=== PATIENT | female | born 1950 | race Caucasian/White ===

== ENCOUNTER 2020-08-11 22:18 | Emergency (ER) | payer MEDICARE, SELFPAY ==
--- NOTE | ~2020-08-11 | XR_ITS ---
EXAMINATION: XR chest 1V portable DATE: 08/11/2020 23:24 INDICATION: Shortness of breath TECHNIQUE: frontal view of the chest was obtained. COMPARISON: None FINDINGS: Postoperative changes at both the left and right hemithoraces with multiple surgical clips at the hil a and with suture lines in the bilateral upper lung zones. Blunting loss in the upper lung zones with cephalad retraction of both elke. There is also elevation of the right hemidiaphragm. No focal airsp rachel opacities, pulmonary edema, pleural effusion or pneumothorax. Heart size is normal. IMPRESSION: 1. No acute cardiopulmonary disease. Reviewed, dictated and finalized at location A. IC RELATIONS SUPERVISOR
[2020-08-11 22:25] VITALS: BP 166/93; PULSE 87; RESP 26; TEMP 36.7; O2SAT 90
--- NOTE | 2020-08-11 22:29 | PC.NURSE ---
pt placed on 2l of o2 nc with no improvement. pt then placed on 4l with o2 sat rising to 100%
--- NOTE | 2020-08-11 22:33 | ECG_ITS ---
Measurements Intervals [place] Rate: 85 P: 76 OR: 157 QRS: 88 QRSD: 76 T: 7 QT: 365 QTc: 435 Interpretive Statements SINUS RHYTHM POSSIBLE LEFT ATRIAL ENLARGEMENT BORDERLINE ST-T WAVE ABNORMALITY- INFERIOR LEADS BASELINE ARTIFACT- I, II, III, AVR, AVL, AVF, V1-V6 BORDERLINE ECG Electronically Signed On 08-12-2020 7:02:36 SENIOR QUALITY METHODS SPECIALIST by John Wynn D.O.
--- NOTE | 2020-08-11 22:40 | ED.SOB ---
HPI - SOB/Dyspnea General Chief Complaint: Shortness of Breath/Dyspnea Stated Complaint: SOB Time Seen by Provider: 08/11/20 22:38 History of Present Illness HPI Narrative: 70 yo female w/ h/o lung cancer s/p double lobectomy presents to the ED for SOB. She has had some SOB since yesterday, acutely worse this evening. Noted to be in distress and mildly hypoxic during triage. She does endorse having to work harder to breath. No CP, fever, chills, cough. History mildly limited by medical condition Related Data Allergies Allergy/AdvReac Type Severity Reaction Status Date / Time iohexol Allergy Hives Verified 08/11/20 22:30 [From contrast - CT, X-RAY] Review of Systems Review of Systems: All systems reviewed & are unremarkable except as noted in HPI and below Constitutional: Constitutional: Denies chills, Denies fever(s) and Denies weakness ENT: Denies sore throat Cardiovascular: Cardiovascular: Denies chest pain Respiratory: Respiratory: Denies cough and Reports dyspnea Gastrointestinal: Gastrointestinal: Denies abdominal pain and Denies nausea Musculoskeletal: Musculoskeletal: Denies back pain Neurologic: Denies confusion and Denies weakness [facility] Past Medical History Medical History (Updated 08/13/20 @ 00:55 by Estuardo Quintanilla MD) Lung cancer Surgical History Surgical History (Updated 08/13/20 @ 00:55 by Estuardo Quintanilla MD) History of lobectomy of lung Social History Social History (Updated 08/13/20 @ 00:55 by Estuardo Quintanilla MD) Smoking status: Former smoker Exam Const: Other: Mild distress. Speaking in 1-2 word sentences HENMT: Head: normal to inspection Neck: Neck: normal visual inspection Resp: Effort & Inspection: labored Auscultation: diminished lung sounds Cardio: Rate: regular rate Rhythm: regular rhythm GI: GI Palp: Yes Soft to palpation and No Tenderness to palpation present (GI) Skin: General skin exam: normal color Neuro: General: patient oriented x3, moves all extremities, no focal motor deficits and CN's II-XI intact bilaterally Gait exam (Neuro): Normal gait present Extrem: General: normal to inspection and no edema Course Vital Signs Vital signs: Vital Signs Temperature 36.7 C 08/11/20 22:25 Pulse Rate 87 01/13/21 22:25 Respiratory Rate 26 H 08/11/20 22:25 Blood Pressure 166/93 H 08/11/20 22:25 Pulse Oximetry 90 08/11/20 22:25 Temperature 36.6 C 08/12/20 00:00 Pulse Rate 72 08/12/20 00:48 Respiratory Rate 16 08/12/20 00:48 Blood Pressure 113/67 08/12/20 00:48 Pulse Oximetry 97 08/12/20 00:48 MDM - SOB/Dyspnea MDM Narrative Medical decision making narrative: She responded very well to nebulizer treatment. Feeling close to baseline. She likely has undiagnosed COPD or other reactive lung disease. I offered admission due to the severity of her symptoms on presentation. She said that she would prefer to go home and would have no problem getting back if symptoms worsen Differential Diagnosis Differential diagnosis: Likely acute exacerbation of chronic obstructive airways disease, community acquired pneumonia, pulmonary embolism and other (COVID-19) Lab Data Result diagrams: 08/11/20 22:52 08/11/20 22:52 Labs: Lab Results 08/11/20 08/11/20 08/11/20 Range/Units 22:52 22:52 22:52 WBC 10.8 H (4.5-10.0) K/mm3 RBC 4.10 L (4.2-5.4) M/mm3 Hgb 13.4 (12.0-15.0) g/dL Hct 37.9 (37.0-47.0) % MCV 92.4 (80-100) fl MCH 32.7 (26-34) pg MCHC 35.4 (32-36) g/dl RDW 12.5 (11.5-14.5) % Plt Count 350 (150-375) k/mm3 MPV 8.5 (7.4-10.4) fl Immature Gran % (Auto) 0.3 (0-0.5) % Neut % (Auto) 62.3 (45.5-73.1) % Lymph % (Auto) 28.0 (18.3-44.2) % Moca % (Auto) 6.5 (2.6-8.5) % Eos % (Auto) 2.2 (0-4.4) % Baso % (Auto) 0.7 (0.2-1.2) % Lymph # (Auto) 3.02 (0.9-3.2) K/mm3 Moca # (Auto) 0.7 H (0.1-0.6) K/mm3 Eos #
[2020-08-11] MEDS: ALBUTEROL SULFATE NEB 2.5 MG/0.5 ML INH 5 MG INHALATION (22:49)
[2020-08-11] MEDS: IPRATROPIUM BR 0.02% INH SOLN 0.5 MG/2.5 ML VIAL INHALATION (22:49)
[2020-08-11 22:54] VITALS: BP 129/89; PULSE 80; RESP 22; TEMP 36.2; O2SAT 99
[2020-08-11 23:00] LABS: Basophils Absolute Auto 0.1 K/mm3 (0.0-0.1); Basophils Percent Auto 0.7 % (0.2-1.2); Eosinophils Absolute Auto 0.2 K/mm3 (0-0.3); Eosinophils Percent Auto 2.2 % (0-4.4); Hematocrit 37.9 % (37.0-47.0); Hemoglobin 13.4 g/dL (12.0-15.0); Immature Granulocyte Absolute 0.03 K/mm3 (0.00-0.031); Immature Granulocyte Percent A 0.3 % (0-0.5); Lymphocytes Absolute Auto 3.02 K/mm3 (0.9-3.2); Mean Corpuscular HGB Conc 35.4 g/dl (32-36); Mean Corpuscular Hemoglobin 32.7 pg (26-34); Mean Corpuscular Volume 92.4 fl (80-100); Mean Platelet Volume 8.5 fl (7.4-10.4); Monocytes Absolute Auto 0.7 K/mm3 (0.1-0.6); Monocytes Percent Auto 6.5 % (2.6-8.5); Neutrophils Absolute Auto 6.7 K/mm3 (1.3-6.7); Neutrophils Percent Auto 62.3 % (45.5-73.1); Platelet Count Result 350 k/mm3 (150-375); Red Cell Distribution Width 12.5 % (11.5-14.5); White Blood Count 10.8 K/mm3 (4.5-10.0)
[2020-08-11 23:02] VITALS: PULSE 78; RESP 27
[2020-08-11 23:10] LABS: Alveolar/Arterial O2 Gradient 76.5 mmHg; Base Excess ABG -5.9 mEq/l (+/-2.0); Carboxyhemoglobin 0.3 % THb (0-2.0); Fractional Inspired Oxygen 36 %; Methemoglobin ABG 0.5 %THb (0-1.5); Oxygen Content ABG 18.6 %vol (16.0-22.0); Oxygen Saturation ABG 98.1 % (95.0-100.0); Oxyhemoglobin 96.9 % THb (90.0-100.0); PCO2 ABG 46.9 mmHg (35.0-45.0); PO2 ABG 125.8 mmHg (80.0-100.0); PO2 FiO2 Ratio Arterial Blood 3.49 %; Reduced Hemoglobin 2.3 %THb (0-5.0); Total Hemoglobin 13.5 g/dL (12.0-18.0)
[2020-08-11 23:11] LABS: Device NASAL CANNULA; Site Drawn LEFT BRACHIAL; pH ABG 7.269 (7.350-7.450)
[2020-08-11 23:12] VITALS: PULSE 73; RESP 18
[2020-08-11 23:13] LABS: Anion Gap 10 mmol/L (8-16); Blood Urea Nitrogen 10 mg/dL (7-17); Calcium 8.7 mg/dL (8.4-10.2); Carbon Dioxide 24 mmol/L (22-30); Chloride 104 mmol/L (98-107); Estimated CRCL calculation 37 ml/min; Estimated Glomerular Filt Rate > 60; Glucose 84 mg/dL (65-105); Potassium 3.8 mmol/L (3.4-5.0); Sodium 138 mmol/L (137-145)
[2020-08-12] VITALS: BP 104/64; PULSE 69; RESP 18; TEMP 36.6; O2SAT 98
[2020-08-12] MEDS: ALBUTEROL SULFATE NEB 2.5 MG/0.5 ML INH 5 MG INHALATION (00:28)
[2020-08-12] MEDS: IPRATROPIUM BR 0.02% INH SOLN 0.5 MG/2.5 ML VIAL INHALATION (00:28)
[2020-08-12 00:30] VITALS: PULSE 65; RESP 18
[2020-08-12 00:40] VITALS: PULSE 69; RESP 18
[2020-08-12 00:48] VITALS: BP 113/67; PULSE 72; RESP 16; O2SAT 97
== END 2020-08-12 00:49 | disposition home or self-care (01) ==
PROVIDERS: Family Medicine; Emergency Provider Emergency Medicine
DX: R06.03 Acute respiratory distress (principal); Z87.891 Personal history of nicotine dependence; Z90.2 Acquired absence of lung [part of]; Z85.118 Personal history of other malignant neoplasm of bronchus and lung; R94.31 Abnormal electrocardiogram [ECG] [EKG]
CPT/HCPCS: 36415; 36600; 71045; 80048; 82375; 82805; 83050; 85025; 93005; 94640; 96374; 99284; J1100

== ENCOUNTER → 2021-01-13 13:04 | Outpatient (CLI) | payer MEDICARE, SELFPAY ==
--- NOTE | ~2021-01-13 | MR_ITS ---
EXAMINATION: MR lumbar spine wo con EXAM DATE: 01/13/2021 13:52 INDICATION: Radiculopathy, lumbar radiculopathy, mid to low back pain. Right groin tingling/pain. TECHNIQUE: Multi-sequential, multiplanar MR images of the lumbar spine were obtained without contrast . Sagittal T1, T2, T2 fat saturation images. Axial T2 weighted images. There is no prior study for comparison. FINDINGS: There is chronic mild compression fracture superior endplate of T12. The conus medullaris t erminates at the T12-L1 level and has normal signal intensity and morphology. Mild diffuse lumbar di sc disease. There are no suspicious marrow signal abnormalities. The vertebral bodies are aligned in the AP dimension. Paraspinal soft tissue is unremarkable. Level by level evaluation: T11-12: There is a minimal diffuse disc bulge. Facet arthropathy: Mild left. Neural foraminal stenosis: No stenosis. Central canal stenosis: No stenosis. T12-L1: Disc does not extend beyond the endplate margin. Facet arthropathy: None. Neural foraminal stenosis: No stenosis. Central canal stenosis: No stenosis. L1-L2: Small central disc protrusion. Facet arthropathy: None. Neural foraminal stenosis: No stenosis. Central canal stenosis: No stenosis. L2-L3: There is a minimal diffuse disc bulge. Facet arthropathy: Mild. Neural foraminal stenosis: No stenosis. Central canal stenosis: No stenosis. L3-L4: There is a mild diffuse disc bulge. Facet arthropathy: Mild. Neural foraminal stenosis: No stenosis. Central canal stenosis: No stenosis. L4-L5: There is a mild diffuse disc bulge. Facet arthropathy: Mild. Neural foraminal stenosis: No stenosis. Central canal stenosis: No stenosis. L5-S1: There is a mild diffuse disc bulge. Facet arthropathy: Mild. Neural foraminal stenosis: No stenosis. Central canal stenosis: No stenosis. IMPRESSION: 1. Mild lumbar spondylosis. 2. Chronic mild compression fracture T12. Reviewed, dictated and finalized at location G.
== END ==
DX: M47.26 Other spondylosis with radiculopathy, lumbar region (principal); S22.080A Wedge compression fracture of T11-T12 vertebra, initial encounter for closed fracture; X58.XXXA Exposure to other specified factors, initial encounter
CPT/HCPCS: 72148

== ENCOUNTER 2021-01-15 17:12 | Observation (INO) | payer MEDICARE, SELFPAY ==
[2021-01-15] VITALS (8 sets, daily range): BP systolic 118–170; BP diastolic 73–97; PULSE 76–90; RESP 14–21; TEMP 36.4–36.6; O2SAT 98–100; BMI 16.2
[2021-01-15 17:41] LABS: Basophils Percent Auto 0.2 % (0.2-1.2); Hematocrit 36.6 % (37.0-47.0); Hemoglobin 13.1 g/dL (12.0-15.0); Immature Granulocyte Absolute 0.03 K/mm3 (0.00-0.031); Immature Granulocyte Percent A 0.3 % (0-0.5); Lymphocytes Absolute Auto 0.32 K/mm3 (0.9-3.2); Mean Corpuscular HGB Conc 35.8 g/dl (32-36); Mean Corpuscular Hemoglobin 32.3 pg (26-34); Mean Corpuscular Volume 90.4 fl (80-100); Mean Platelet Volume 8.5 fl (7.4-10.4); Monocytes Absolute Auto 0.1 K/mm3 (0.1-0.6); Monocytes Percent Auto 1.1 % (2.6-8.5); Neutrophils Absolute Auto 10.3 K/mm3 (1.3-6.7); Neutrophils Percent Auto 95.4 % (45.5-73.1); Platelet Count Result 388 k/mm3 (150-375); Red Blood Count 4.05 M/mm3 (4.2-5.4); White Blood Count 10.7 K/mm3 (4.5-10.0)
[2021-01-15 17:51] LABS: Alanine Aminotransferase 22 U/L (4-35); Alkaline Phosphatase 76 U/L (38-126); Anion Gap 12 mmol/L (8-16); Aspartate Amino Transferase 39 U/L (14-36); Bilirubin,Total 0.5 mg/dL (0.2-1.3); Blood Urea Nitrogen 10 mg/dL (7-17); Calcium 9.7 mg/dL (8.4-10.2); Carbon Dioxide 22 mmol/L (22-30); Chloride 93 mmol/L (98-107); Estimated CRCL calculation 47 ml/min; Estimated Glomerular Filt Rate > 60; Glucose 204 mg/dL (65-105); Lipase 86 U/L (23-300); Potassium 3.7 mmol/L (3.4-5.0); Sodium 127 mmol/L (137-145)
[2021-01-15] MEDS: SODIUM CHLORIDE 0.9% IV 1,000 ML 999 ML IV CONT (18:37)
[2021-01-15] MEDS: PROCHLORPERAZINE EDISYLATE 10 MG/2 ML VIAL IV PUSH (18:39)
[2021-01-15 19:17] LABS: Add Urine Microscopic? YES; Appearance Urine Clear (Clear); Bilirubin Urine Negative (Negative); Blood Urine Negative (Negative); Color Urine Straw (Yellow); Glucose Urine UA 2+ mg/dL (Negative); Ketones Urine 1+ mg/dL (Negative); Leukocyte Esterase Ur Negative LEU/UL (Negative); Nitrate Urine Negative (Negative); Protein Urine 1+ mg/dL (Negative); RBC Urine 0-2 /hpf (0-2); Squamous Epithelial Cell Urine Rare /hpf (Few); Urobilinogen Urine Negative mg/dL (<2.0); WBC Urine 0-3 /hpf
--- NOTE | 2021-01-15 20:09 | ED.NAVMDI ---
HPI - Nausea/Vomiting/Diarrhea General Chief complaint: Nausea/Vomiting/Diarrhea Stated complaint: nausea/vomiting/abd pain Time Seen by Provider: 01/15/21 17:16 Source: patient Mode of arrival: ambulatory Limitations: no limitations History of Present Illness HPI Narrative: 70-year-old female Resection of lung tumors bilaterally She is here because of a 2-day history of nausea vomiting and diarrhea She estimates 8 or 9 trips to the bathroom today She has a little bit of crampy abdominal discomfort but nothing severe No blood in the stool, no fever She said she had had chronic diarrhea due to her old antidepressant and was switched to sertraline recently which she thinks made things even worse Related Data Allergies Allergy/AdvReac Type Severity Reaction Status Date / Time iohexol Allergy Hives Verified 08/11/20 22:30 [From contrast - CT, X-RAY] Review of Systems Review of Systems: All systems reviewed & are unremarkable except as noted in HPI and below Constitutional: Constitutional: Reports no additional constitutional complaints, Denies chills, Reports fatigue, Denies fever(s), Denies headache(s) and Reports weakness Eyes: Eyes: Reports no additional eye complaints and Denies change in vision ENT: Denies headache(s) and Denies sore throat Cardiovascular: Cardiovascular: Denies chest pain and Denies dyspnea Respiratory: Respiratory: Denies cough and Denies dyspnea Gastrointestinal: Gastrointestinal: Denies abdominal pain, Reports diarrhea, Reports nausea and Reports vomiting Genitourinary: Genitourinary: Denies urinary frequency and Denies dysuria Musculoskeletal: Musculoskeletal: Reports myalgias, Denies deformity, Denies arthralgias, Denies joint swelling and Denies numbness Integumentary/Breasts: Skin/Breast: Denies rash and Denies wounds Neurologic: Denies headache(s), Denies focal weakness and Denies numbness Psychiatric: Psychiatric: Reports no additional psychiatric complaints Endocrine: Endocrine: Reports no additional endocrine complaints Hematologic/Lymphatic: Hematologic/Lymphatic: Reports no additional hematologic/lymphatic complaints Allergic/Immunologic: Allergic/Immunologic: Reports no additional allergic/immunologic complaints [facility] Past Medical History Medical History (Updated 01/15/21 @ 21:45 by Maurilio Alfaro MD) Chronic diarrhea COPD (chronic obstructive pulmonary disease) Depression with anxiety Lumbosacral spondylosis with radiculopathy MRI December 2020 Lung cancer T12 compression fracture Surgical History Surgical History (Updated 08/13/20 @ 00:55 by Estuardo Quintanilla MD) History of lobectomy of lung Social History Social History (Updated 08/13/20 @ 00:55 by Estuardo Quintanilla MD) Smoking status: Former smoker Exam Const: General: cooperative and alert Nutritional Appearance: thin Orientation/consciousness: patient oriented x3 (alert) HENMT: Head: normal to inspection, normocephalic and atraumatic Ears: external ears normal General nose exam: no epistaxis Eyes: Conjunctivae: conjunctivae normal EOM: EOMs intact bilaterally Neck: Neck: normal visual inspection, supple and no JVD Resp: Effort & Inspection: normal respiratory effort and not labored Auscultation: clear to auscultation bilaterally and other (BS =) Cardio: Rate: regular rate Rhythm: regular rhythm Heart sounds: no murmurs GI: Inspection: non-distended GI Palp: Yes Soft to palpation, No Tenderness to palpation present (GI), No Guarding due to palpation present (GI) and No Rebound tenderness present : General: Yes no CVA tenderness Skin: General skin exam: normal color and no rashes or lesions noted Neuro: General: patient oriented x3 (alert) and moves all extremities Speech: normal speech Extrem: General: normal to inspection and no pedal edema Psych: Affect: normal affect Course Course Emergency Course: Hyponatremia noted on work-up, consequence of ongoing di
--- NOTE | 2021-01-15 21:23 | PM.IMHP ---
H&P: HPI History of Present Illness Date/Time: 01/15/21 21:23 Chief Complaint: Diarrhea Narrative: 70-year-old female with past medical history of lung cancer, depression, hypertensio and chronic diarrhea who presented to the ER with vomiting and diarrhea. She reports that she has had chronic loose stools for the last 2-3 years that she is so she is with use of bupropion. She usually has 2-3 loose stools each morning. She had had a 10 lb weight loss over the last year and when she went to missed tablet with a new primary care physician earlier this week they decided to change her antidepressant. They switched her antidepressant to sertraline. She started the sertraline 4 days ago. Shortly thereafter she began having numerous loose stools a day. Initially the stools were brown in color but of transition to yellow. She has had decreased appetite. On the day of presentation she began having nausea and vomiting. Her emesis was clear material. She reports that she has been having some crampy abdominal pain just before she has diarrhea. She denies any abdominal distension. She has not been having any fevers. She did have some chills today prior to coming to the ER. She does have a history of lung cancer since 2003 that is monitor closely. She has been cancer free since 2007. She denies any chest pain or shortness of breath. She has not had any recent ill contacts. She received both COVID vaccines with her 2nd vaccine being in September. She does have a history of GERD but denies any significant GERD symptoms at this time. She reports that she just got back from vacation to [place] where she was visiting family. She has not drank any contaminated water that she knows of. Review of Systems Review of Systems: Narrative: 12 systems were reviewed with pertinent positives and negatives per HPI. Except as documented in the HPI, all other systems were reviewed and are negative. [facility] Past Medical History Medical History (Updated 01/16/21 @ 00:56 by Keri Parmar DO) Chronic diarrhea COPD (chronic obstructive pulmonary disease) Depression with anxiety Essential hypertension GERD (gastroesophageal reflux disease) Hyperlipidemia Lumbosacral spondylosis with radiculopathy MRI December 2020 Lung cancer She believes that she had non-small cell lung cancer T12 compression fracture Surgical History Surgical History (Updated 01/16/21 @ 00:56 by Keri Parmar DO) History of appendectomy History of lobectomy of lung Right upper and middle lobe lobectomy 2003 due to non small cell lung cancer, left partial lobectomy 2005, stereotactic radiation to the right lung in 2007 History of tonsillectomy History of vaginal hysterectomy Family History Family History (Updated 01/16/21 @ 00:57 by Keri Parmar DO) Father , at age 77 Hypertension CHF (congestive heart failure) Mother , at age 69 Hypertension Sibling DIEUDONNE-2 gene mutation Social History Social History (Updated 01/16/21 @ 01:00 by Keri Parmar DO) Social History: She lives in [place] with her of 47 years. They have 2 daughters who are healthy. 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 She drinks 2 glasses a wine nightly. She smoked 1 pack of cigarettes per day for 34 years but quit smoking in 2003. She denies any illicit substance use. Primary care provider: Dr. Joshua Pan Code status: Full code Surrogate decision maker: Smoking packs per day: 1 Smoking cigarettes per day: 20.0 Years smoked: 34 Smoking pack-years: 34.00 Smoking status: Former smoker Tobacco type: cigarettes Alcohol intake: current Drinks per week: 7 Substance use: current Substance use type: marijuana Spiritual care concerns: No Meds Home Medications and Allergies Home Medications Medication Instructions Recorded Confirmed Type albuterol sulfate 2 puff INHALATION QID PRN #8.5 g
[2021-01-15] MEDS: SODIUM CHLORIDE 0.9% IV 1,000 ML 100 ML IV CONT (21:55)
[2021-01-15] MEDS: ENOXAPARIN 40 MG/0.4 ML SYRINGE SUB-Q (21:56)
--- NOTE | 2021-01-15 22:45 | ADMGEN ---
This patient, Marielle Myers, was admitted to Medical Room 340-01. Patient/family oriented to hospital policies and general routines including ID bracelet, bed and alarms, visiting hours, pain management, procedures, bathroom and other care routines, personal items, smoking policy, room service/diet, and visiting hours. Information on how to activate the Rapid Response Team has been discussed. Patient/Family are encouraged to report perceived risks to care and to ask questions if they do not understand what they are told or what they should do.
[2021-01-15] MEDS: ACETAMINOPHEN 325 MG TABLET 650 MG PO (23:22)
[2021-01-16 01:08] LABS: Sodium 130 mmol/L (137-145)
[2021-01-16 04:56] VITALS: BP 123/69; PULSE 68; RESP 16; TEMP 37.1; O2SAT 97
[2021-01-16 06:07] LABS: Anion Gap 8 mmol/L (8-16); Blood Urea Nitrogen 5 mg/dL (7-17); Carbon Dioxide 23 mmol/L (22-30); Chloride 102 mmol/L (98-107); Estimated CRCL calculation 48 ml/min; Estimated Glomerular Filt Rate > 60; Glucose 86 mg/dL (65-105); Potassium 2.7 mmol/L (3.4-5.0); Sodium 133 mmol/L (137-145)
[2021-01-16] MEDS: POTASSIUM CHLORIDE 20 MEQ TABLET 40 MEQ PO (06:29)
[2021-01-16 06:46] LABS: Magnesium 1.1 mg/dL (1.6-2.3)
[2021-01-16 07:13] VITALS: O2SAT 97
[2021-01-16] MEDS: SODIUM CHLORIDE 0.9% IV 1,000 ML 100 ML IV CONT (07:30)
[2021-01-16] MEDS: MAGNESIUM SULFATE 3GM/D5W100ML 3 GM/100 ML BAG IVPB (09:34)
[2021-01-16] MEDS: ACETAMINOPHEN 325 MG TABLET 650 MG PO (12:00)
[2021-01-16 12:21] LABS: Anion Gap 6 mmol/L (8-16); Blood Urea Nitrogen 4 mg/dL (7-17); Calcium 8.1 mg/dL (8.4-10.2); Carbon Dioxide 27 mmol/L (22-30); Chloride 103 mmol/L (98-107); Estimated CRCL calculation 41 ml/min; Estimated Glomerular Filt Rate > 60; Glucose 103 mg/dL (65-105); Potassium 3.8 mmol/L (3.4-5.0); Sodium 136 mmol/L (137-145)
[2021-01-16 14:00] VITALS: BP 134/73; PULSE 84; RESP 18; TEMP 36.3; O2SAT 100
--- NOTE | 2021-01-16 14:33 | PM.IMPN ---
Progress Note: A&P Assessment and Plan (1) Electrolyte abnormality: Code(s): E87.8 - Other disorders of electrolyte and fluid balance, not elsewhere classified Status: Acute Assessment and Plan: Sodium was low at presentation. Hyponatremia likely related to dehydration, however SIADH secondary to SSRI considered. Sodium levels have improved with IV fluid hydration. Potassium critically low this morning at 2.7 likely secondary to nausea and vomiting. She has received total of 80 mEq KCl and potassium levels have stabilized. Last potassium was 3.8. Magnesium low at 1.1 at presentation, also likely secondary to nausea and vomiting. Received 3 mg IV magnesium sulfate. Repeat serum magnesium level has been ordered and is pending. (2) Dehydration: Code(s): E86.0 - Dehydration Status: Acute Assessment and Plan: Secondary to vomiting and diarrhea. She has been rehydrated with normal saline and is now tolerating oral fluid intake. She appears euvolemic on my exam. (3) Chronic diarrhea: Code(s): K52.9 - Noninfective gastroenteritis and colitis, unspecified Status: Acute Assessment and Plan: She reports chronic diarrhea secondary to adverse effect of her sertraline. Infectious etiology seems unlikely based on clinical findings and labs. Stool is becoming more formed today. (4) Depression: Qualifiers: Depression Type: major depressive disorder Major depression recurrence: recurrent Active/Remission status: currently active Major depression episode severity: mild Qualified Code(s): F33.0 - Major depressive disorder, recurrent, mild Code(s): F32.9 - Major depressive disorder, single episode, unspecified Status: Acute Assessment and Plan: Mood is stable. She would like to come off of antidepressants. Given concerns for sertraline as the etiology of her chronic diarrhea and in consideration of her wishes, we will plan to wean her sertraline upon discharge with close PCP follow up. Sertraline is on hold at this time. (5) Essential hypertension: Code(s): I10 - Essential (primary) hypertension Status: Inactive Assessment and Plan: Blood pressure reviewed and has been well controlled. Last BP 134/73. Subjective Date/time seen: 01/16/21 14:33 Interval history: Date of service: 01/16/2021 Marielle Myers is a 70-year-old female with history COPD, hypertension, hyperlipidemia, lung cancer in remission, anxiety and depression is seen in follow-up for diarrhea and vomiting. She is feeling better today. She has not had any episodes of nausea or vomiting today. This morning she had a loose bowel movement that she described as dark brown in color. Denied melena or hematochezia. No abdominal pain or epigastric pain. No fevers, chills, or sweats. She was able to tolerate a small portion of her breakfast this morning. No shortness breath, cough, chest pain, dizziness, lightheadedness, headaches, body aches or muscle cramping. Review of Systems Review of Systems: All systems reviewed & are unremarkable except as noted in HPI and below Exam Narrative: Exam Narrative: Ms. Myers is a well-nourished, well-appearing 70-year-old female who is lying supine in bed. She appears comfortable and is in NARD. Neuro: awake, alert and oriented x4, speech clear, no focal neuro deficits noted HEENMT: normocephalic, atraumatic, EOMI, sclerae anicteric, moist oral mucosa Neck: supple, no lymphadenopathy Respiratory: clear to auscultation bilaterally, nonlabored breathing Cardio: regular rate, regular rhythm with S1-S2 Abdomen: nondistended, normoactive bowel sounds, soft, nontender to palpation, no rigidity or guarding Extremities: no edema, erythema, or tenderness to palpation, DP pulses 2+ bilaterally Skin: no rashes or lesions, warm and dry Psych: appropriate mood and affect, judgment and insight intact Objective Data Marisol
[2021-01-16 15:54] LABS: Magnesium 2.2 mg/dL (1.6-2.3)
--- NOTE | 2021-01-16 16:13 | PM.DS ---
DS: Admitting Diagnosis Admitting Diagnosis Admitting Diagnosis: Hyponatremia DS: Discharge Diagnosis Discharge Diagnosis (1) Electrolyte abnormality: Code(s): E87.8 - Other disorders of electrolyte and fluid balance, not elsewhere classified Status: Acute Assessment and Plan: Sodium was low at presentation. Hyponatremia likely related to dehydration, however SIADH secondary to SSRI considered. Sodium levels improved with IV fluid hydration, 136 at time of discharge. Potassium critically low at 2.7 likely secondary to nausea and vomiting. She received a total of 80 mEq KCl and potassium levels improved up to 3.8. Magnesium low at 1.1 at presentation, also likely secondary to nausea and vomiting. Received 3 mg IV magnesium sulfate and magnesium levels improved up to 2.2. (2) Dehydration: Code(s): E86.0 - Dehydration Status: Acute Assessment and Plan: Secondary to vomiting and diarrhea. She was rehydrated with normal saline and was able to tolerate oral fluid intake. She appeared euvolemic on my exam. (3) Chronic diarrhea: Code(s): K52.9 - Noninfective gastroenteritis and colitis, unspecified Status: Acute Assessment and Plan: She reports chronic diarrhea secondary to adverse effect of her sertraline. Infectious etiology seems unlikely based on clinical findings and labs. Stool is becoming more formed (4) Depression: Qualifiers: Depression Type: major depressive disorder Major depression recurrence: recurrent Active/Remission status: currently active Major depression episode severity: mild Qualified Code(s): F33.0 - Major depressive disorder, recurrent, mild Code(s): F32.9 - Major depressive disorder, single episode, unspecified Status: Acute Assessment and Plan: Mood is stable. She would like to come off of antidepressants. Given concerns for sertraline as the etiology of her chronic diarrhea and in consideration of her wishes, we will plan to wean her sertraline upon discharge with close PCP follow up. Decreased to 25 mg daily and follow-up with PCP for further adjustment. (5) Essential hypertension: Code(s): I10 - Essential (primary) hypertension Status: Inactive Assessment and Plan: Blood pressure reviewed and was well controlled. Continue home benazepril and amlodipine. DS: Summary Hospital Course Reason for hospitalization: Vomiting and diarrhea Hospital Course: Date of admission: 01/15/2021 Date of discharge: 01/16/2021 Marielle Myers is a 70-year-old female with history COPD, hypertension, hyperlipidemia, lung cancer in remission, anxiety and depression who presented to the emergency department on 01/15/2021 with complaints of diarrhea, nausea, and vomiting. Upon presentation to the emergency department her vital signs were stable, she is afebrile, white blood cell count was 10.7, H&H stable, platelets 388, sodium 127, potassium 3.7, chloride 93, CO2 22, BUN 10, creatinine 0.6, and glucose 204, lipase 86. She was admitted to the hospitalist service for further evaluation and management. Please see above for further details. She was rehydrated with IV fluids and her electrolytes were replenished. She had significant symptomatic improvement and requested discharge home. Given overall improvement and stable labs, she was determined to no longer require inpatient care and was felt to be stable for discharge. We discussed worrisome signs and symptoms for which to return and she was educated on her medications. She was discharged in hemodynamically stable condition on 01/16/2021. Status at Discharge Functional status at discharge: independent ambulation Overall status at discharge: patient is progressing back to baseline Time Spent with Patient Time attestation: Total time spent providing and/or coordinating discharge services: 40 minutes Time spent: Greater than 30 minutes Exam Narrative:
== END 2021-01-16 18:36 | disposition home or self-care (01) ==
LOC: ANHED 21:45 → ANH3MED 21:49
PROVIDERS: Physician Assistant; Admitting Provider Internal Medicine; Emergency Provider Emergency Medicine; PCP Internal Medicine; Visit Provider Family Medicine
DX: E87.8 Other disorders of electrolyte and fluid balance, not elsewhere classified (principal); E86.0 Dehydration; E87.1 Hypo-osmolality and hyponatremia; K52.9 Noninfective gastroenteritis and colitis, unspecified; R06.02 Shortness of breath; J44.9 Chronic obstructive pulmonary disease, unspecified; F41.8 Other specified anxiety disorders; I10 Essential (primary) hypertension; K21.9 Gastro-esophageal reflux disease without esophagitis; E78.5 Hyperlipidemia, unspecified; M47.897 Other spondylosis, lumbosacral region; Z85.118 Personal history of other malignant neoplasm of bronchus and lung; Z90.2 Acquired absence of lung [part of]; Z87.891 Personal history of nicotine dependence; Z79.51 Long term (current) use of inhaled steroids
CPT/HCPCS: 36415; 80048; 80053; 81001; 83690; 83735; 84295; 85025; 96361; 96365; 96366; 96367; 96372; 96374; 96375; 99285; A9270; G0378; J0780; J1650; J3475; J3480; J7030

== ENCOUNTER → 2021-07-27 11:37 | Outpatient (CLI) | payer MEDICARE, SELFPAY ==
--- NOTE | ~2021-07-27 | XR_ITS ---
EXAMINATION: XR chest 2V DATE: 07/27/2021 11:54 INDICATION: Laryngitis. Cough. TECHNIQUE: Frontal and lateral views of the chest were obtained. COMPARISON: Chest 2 views 08/11/2020 FINDINGS: There is chronic volume loss of right hemithorax. There are surgical clips at right hilum. There are staple lines in left lung. There are surgical clips overlying left lung and hilum. There is mild stable scarring at right lung apex. No pleural effusion or pneumothorax. The heart size is norm al. Calcified mediastinal lymph nodes are consistent with old granulomatous disease. IMPRESSION: 1. Surgical changes in the lungs. Reviewed, dictated and finalized at location D. E COORDINATOR
== END ==
PROVIDERS: PCP Internal Medicine; Visit Provider Internal Medicine
DX: J04.0 Acute laryngitis (principal); R05.9 Cough, unspecified
CPT/HCPCS: 71046

== ENCOUNTER → 2021-12-06 14:15 | Outpatient (CLI) | payer MEDICARE, SELFPAY ==
--- NOTE | ~2021-12-06 | XR_ITS ---
XR chest 2V DATE: 12/06/2021 14:51 INDICATION: Upper respiratory tract infection TECHNIQUE: 2 views COMPARISON: 07/27/2021 2 view chest FINDINGS: Surgical clips are noted at both hilar areas. Suture lines from left lung resection. There is partial resection of the left fifth rib. There is right lung volume loss with elevated right diaphragm. These findings are unchanged since . No pulmonary infiltrate or consolidation, pleural effusion or pulmonary vascular congestion or pneumo thorax is evident. Prominent chronic cupping of the superior vertebral endplate of approximately T12. IMPRESSION: No acute finding or significant change since 07/27/2021 Reviewed, dictated and finalized at location B.
== END ==
PROVIDERS: PCP Internal Medicine; Visit Provider Internal Medicine
DX: J06.9 Acute upper respiratory infection, unspecified (principal); J43.9 Emphysema, unspecified
CPT/HCPCS: 71046

== ENCOUNTER 2022-06-17 12:04 | Emergency (ER) | payer MEDICARE, SELFPAY ==
[2022-06-17] VITALS (7 sets, daily range): BP systolic 124–163; BP diastolic 71–85; PULSE 78–98; RESP 16–20; TEMP 36.8; O2SAT 97–99
--- NOTE | ~2022-06-17 | XR_ITS ---
EXAMINATION: XR chest 2V DATE: 06/17/2022 12:40 INDICATION: Chest tightness and pressure. Prior lung cancer. TECHNIQUE: frontal and lateral views of the chest were obtained. COMPARISON: Chest radiograph dated 12/06/2021 FINDINGS: Chronic volume loss in the right hemithorax with elevation the right hemidiaphragm. Postoperative tosha nges with surgical clips at the left and right elke and with suture suture lines at the left upper torito ng zone. Likely secondary cephalad retraction of the bilateral elke. Unchanged mild pleural parenchym al scarring at the right apex and along the left and right sides of the diaphragm. No other airspace opacities, pulmonary edema, pleural effusion or pneumothorax. Heart size is normal. Calcified mediast inal lymph nodes consistent with old granulomatous disease. IMPRESSION: 1. Stable appearance of postoperative changes in the lungs. No acute cardiopulmonary disease. Reviewed, dictated and finalized at location A. IMPRESSION: 1. Stable appearance of postoperative changes in the lungs. No acute cardiopulm onary disease.
--- NOTE | 2022-06-17 12:10 | ECG_ITS ---
Measurements Intervals [place] Rate: 91 P: 72 NV: 147 QRS: 83 QRSD: 72 T: 33 QT: 318 QTc: 392 Interpretive Statements SINUS RHYTHM LEFT ATRIAL ENLARGEMENT BORDERLINE ST ABNORMALITY- ANTEROLATERAL LEADS BASELINE ARTIFACT- I, V2-V3 BORDERLINE ECG COMPARED TO ECG 08/11/2020 22:31:09 NO SIGNIFICANT CHANGES Electronically Signed On 06-17-2022 18:02:41 CURRIC[employer]UM AND INSTRUCTION SPECIALIST by John Wynn D.O.
[2022-06-17 12:36] LABS: Basophils Absolute Auto 0.1 K/mm3 (0.0-0.1); Eosinophils Absolute Auto 0.2 K/mm3 (0-0.3); Eosinophils Percent Auto 2.2 % (0-4.4); Hematocrit 39.7 % (37.0-47.0); Hemoglobin 13.6 g/dL (12.0-15.0); Immature Granulocyte Absolute 0.02 K/mm3 (0.00-0.031); Immature Granulocyte Percent A 0.2 % (0-0.5); Lymphocytes Absolute Auto 1.99 K/mm3 (0.9-3.2); Lymphocytes Percent Auto 24.3 % (18.3-44.2); Mean Corpuscular HGB Conc 34.3 g/dl (32-36); Mean Corpuscular Hemoglobin 32.2 pg (26-34); Mean Corpuscular Volume 93.9 fl (80-100); Mean Platelet Volume 8.5 fl (7.4-10.4); Monocytes Absolute Auto 0.6 K/mm3 (0.1-0.6); Monocytes Percent Auto 7.3 % (2.6-8.5); Neutrophils Absolute Auto 5.3 K/mm3 (1.3-6.7); Platelet Count Result 404 k/mm3 (150-375); Red Blood Count 4.23 M/mm3 (4.2-5.4); Red Cell Distribution Width 13.8 % (11.5-14.5); White Blood Count 8.2 K/mm3 (4.5-10.0)
[2022-06-17 12:45] LABS: Prothrombin Time 12.7 Seconds (11.1-14.7)
[2022-06-17 12:46] LABS: Partial Thromboplastin Time 28.3 SECONDS (22.3-36.8)
[2022-06-17 12:59] LABS: Alanine Aminotransferase 24 U/L (6-35); Alkaline Phosphatase 76 U/L (38-126); Anion Gap 12 mmol/L (8-16); Aspartate Amino Transferase 38 U/L (14-36); Bilirubin,Total 0.8 mg/dL (0.2-1.3); Blood Urea Nitrogen 9 mg/dL (7-17); Calcium 9.6 mg/dL (8.4-10.2); Carbon Dioxide 29 mmol/L (22-30); Chloride 100 mmol/L (98-107); Estimated CRCL calculation 51 ml/min; Estimated Glomerular Filt Rate > 60; Glucose 98 mg/dL (65-110); Lipase 180 U/L (23-300); Potassium 3.3 mmol/L (3.4-5.0); Sodium 141 mmol/L (137-145)
[2022-06-17 13:11] LABS: Troponin I < 0.012 ng/mL (0.000-0.034)
[2022-06-17] MEDS: ASPIRIN 81 MG CHEWABLE TABLET 324 MG PO (13:12)
--- NOTE | 2022-06-17 13:34 | ED.CHESTPAIN ---
HPI - Chest Pain General Chief Complaint: Chest Pain Stated Complaint: cp Time Seen by Provider: 06/17/22 12:48 History of Present Illness HPI narrative: 72-year-old female presenting to the emergency department for evaluation of an episode of chest tightness and a strange feeling in her head. Patient states this morning she was doing some normal activities including carrying a roaster upstairs. Patient said afterwards she was sitting on the couch when she had onset of the chest tightness. Patient initially thought this was due to her p.o. she took that off but still had the symptoms. Patient did check her blood pressure at home and it was running 160s. In the emergency department patient states that her symptoms have resolved. Patient denies any current chest pain. Patient denies any strange feeling in her head. Has no prior history of CO and did have a stress test approximately 10 years ago prior to surgery. Patient does have history of high blood pressure. Patient does have history of lung cancer and lobectomy Related Data Home Medications Medication Instructions Recorded Confirmed Adult One Daily Multivitamin 1 tablet BYMOUTH DAILY 01/15/21 01/15/21 Children's Calcium Gummies 1 dose PO BID 01/15/21 01/15/21 amlodipine 5 mg tablet 5 mg PO DAILY 01/15/21 01/15/21 atorvastatin 10 mg tablet 20 mg PO DAILY 01/15/21 01/15/21 benazepril 40 mg tablet 40 mg PO DAILY 01/15/21 01/15/21 lansoprazole 30 mg capsule,delayed 30 mg PO DAILY 01/15/21 01/15/21 release Allergies Allergy/AdvReac Type Severity Reaction Status Date / Time iohexol Allergy Hives Verified 06/17/22 12:11 [From contrast - CT, X-RAY] Sulfa (Sulfonamide Allergy Hives Verified 06/17/22 12:31 Antibiotics) Review of Systems Review of Systems: CONSTITUTIONAL: Denies fever, chills, or sweats. EYES: Denies visual changes, redness, or discharge. ENT: Denies rhinorrhea, congestion, sore throat, or otalgia. CARDIOVASCULAR: See HPI RESPIRATORY: Denies cough or dyspnea. GASTROINTESTINAL: Denies abdominal pain, nausea, vomiting, or diarrhea. GENITOURINARY: Denies dysuria or hematuria. SKIN: Denies rash or itching. MUSCULOSKELETAL: Denies back pain, joint pain, or myalgia. NEUROLOGIC: Denies headache, numbness, or weakness. [facility] Past Medical History Medical History (Updated 06/17/22 @ 16:05 by Oscar Ramírez MD) Chronic diarrhea COPD (chronic obstructive pulmonary disease) COVID-19 vaccine series completed (~09/2020) Depression with anxiety Essential hypertension GERD (gastroesophageal reflux disease) Hyperlipidemia Lumbosacral spondylosis with radiculopathy MRI December 2020 Lung cancer She believes that she had non-small cell lung cancer T12 compression fracture Surgical History Surgical History (Updated 01/16/21 @ 00:56 by Keri Parmar DO) History of appendectomy History of lobectomy of lung Right upper and middle lobe lobectomy 2003 due to non small cell lung cancer, left partial lobectomy 2005, stereotactic radiation to the right lung in 2007 History of tonsillectomy History of vaginal hysterectomy Family History Family History (Updated 01/16/21 @ 00:57 by Keri Parmar DO) Father , at age 77 Hypertension CHF (congestive heart failure) Mother , at age 69 Hypertension Sibling DIEUDONNE-2 gene mutation Social History Social History (Updated 01/16/21 @ 01:00 by Keri Parmar DO) Social History: She lives in [place] with her of 47 years. They have 2 daughters who are healthy. 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 She drinks 2 glasses a wine nightly. She smoked 1 pack of cigarettes per day for 34 years but quit smoking in 2003. She denies any illicit substance use. Primary care provider: Dr. Joshua Pan Code status: Full code Surrogate decision maker: Smoking packs per day: 1 Smoking cigarettes per day: 20.0 Years smoked: 34 Smoking pack
[2022-06-17] MEDS: POTASSIUM CHLORIDE 20 MEQ PACKET (FOR LIQUID) 40 MEQ PO (14:18)
[2022-06-17 15:56] LABS: Troponin I < 0.012 ng/mL (0.000-0.034)
== END 2022-06-17 16:33 | disposition home or self-care (01) ==
PROVIDERS: Emergency Medicine; Emergency Provider Emergency Medicine; PCP Internal Medicine
DX: R07.89 Other chest pain (principal); J44.9 Chronic obstructive pulmonary disease, unspecified; I10 Essential (primary) hypertension; K21.9 Gastro-esophageal reflux disease without esophagitis; E78.5 Hyperlipidemia, unspecified; F41.8 Other specified anxiety disorders; Z87.891 Personal history of nicotine dependence; R94.31 Abnormal electrocardiogram [ECG] [EKG]
CPT/HCPCS: 36415; 71046; 80053; 83690; 84484; 85025; 85610; 85730; 93005; 99284; A9270

== ENCOUNTER 2025-06-22 12:33 | Emergency (ER) | payer MEDICARE, SELFPAY ==
--- OUTSIDE RECORDS SUMMARY | 2010-08-05 18:00 | XMS_ITS | Continuity of Care Document ---
Author Organization [facility] Address [address] [place] [address] Phone Care Team Providers Care Rn Maternity Name Role Phone Teo Almonte MD Unavailable Unavailable Medications Medication Instructions Dosage Effective Dates (start - stop) Status Comments PREVACID 30MG CAPSULE DR 1 QD - Active ESTRACE 1MG TABLET 1 QD - Active ZIAC 5-6.25MG TABLET 1 QAM - Active NYSTATIN/TRIAMCINOL ONE CRM 1 BID - Active LIPITOR 10MG TABLET 1 QPM - Active PREDNISONE 10MG TAB(S) 1 DIRECTE - Active 4 po qd x 3d; 3 po qd x 3d; 2 po qd x 3d; 1 po qd x 3d PREVACID 30MG CAPS 1 QD No Longer Active LIPITOR 10MG TABLET 1 QPM - No Longer Active AMOXICILLIN 500MG CAPS 1 Q 8HR - No Longer Active ZIAC 5/6.25MG TABLET 1 QAM - No Longer Active ZIAC 5/6.25MG TABLET 1 QAM - No Longer Active ESTRACE 1MG TABLET 1 QD No Longer Active LIPITOR 10MG TABLET 1 QPM No Longer Active LIPITOR 10MG TABS 1 QPM No Longer Active ESTRACE 1MG TAB(S) 1 QD 2002 No Longer Active ZIAC 6.25-5MG TAB(S) 1 QAM - No Longer Active NYSTATIN W/TRIAMCINOLONE APPL 1 BID - No Longer Active Advance Directives Directive Yes / No Effective Date File Name No Information Encounters Encounter Description Practice Location Reason(s) For Visit Diagnoses Date Provider Providers Copied on Encounter [facility], Box [facility], [place], [place], [address] , tel: [phone] [facility] No Information 201 1 Gage Bruce. [address], [place], [place], [address], [place]. tel:[phone] [facility], [address] [facility], [place], [place], [address] , tel: [phone] [facility] OTH ADV EFF MED/BIO SUB 2 5 No Information [facility], [address] [facility], [place], [place], [address] , [place] tel: [phone] [facility] MAL CANDACE LOWER LOBE LUNG 2 5 Bailey Alonso. [address] [place], [place], [address], [place]. tel:[phone] [facility], [address] [facility], [place], [place], [address] , [place] tel: [phone] [facility] CHEST SWELLING/MASS/LUMP 1200 5 Gage Bruce. [address], [place], [place], [address], [place]. tel:[phone] [employer] [place], [address] [facility], [place], [place], [address] , [place] tel: [phone] [facility] NEUTROPENIACELLULI TIS OF ARM 200 4 Yadira Vasquez. [address], [address], [place], [place], [address], [place]. tel:[phone] [employer], Box [facility], [place], [place], [address] , [place] tel: [phone] [facility] LOCAL SUPRFICIAL SWELLNG 4 [facility]. [address] [facility], [address], [place], [place], [facility], [place]. tel:[phone] [employer], [address], [place], [place], [address] , [place] tel: [phone] [facility] NONSP ABN INTRATHOR NEC 4 No Information [facility], [address], [place], [place], [address] , [place] tel: [phone] [facility] OBSV-SUSPCT MAL NEOPLASM 4 Bailey Gavin. [address] [facility], [place], [place], [address], [place]. tel:[phone] [employer], [address], [place], [place], [address] , [place] tel: [phone] [facility] - [place] (Op) CHEST PAIN NOSCHR AIRWAY OBSTRUCT NECPOST-PROC STATES NEC 4 Gage Bruce. [address] [facility], [place], [place], [address], [place]. tel:[phone] [employer], [address], [place], [place], [address] , [place] tel: [phone] [facility] LONG-TERM USE MEDS NECHYPERLIPIDEMIA NEC/NOSBENIGN HYPERTENSIONESOPHA GEAL REFLUX 4 [facility]. [address] [facility], [address], [place], [place], [facility], [place]. tel:[phone] [employer], [address], [place], [place], [address] , [place] tel: [phone] [facility] HX-HEALTH HAZARDS NECHYPOTHYROIDISM NOSGYNECOLOGIC EXAMINATIONACUTE SINUSITIS NOS 3 [facility]. [address], [address], [place], [facility], [place]. tel:[phone] [employer], [address], [place], [place], [address] , [place] tel: [phone] [facility] LUMBAGO 0200 2 Anderson French. [address], [place], [place], [address], [place]. tel:[phone] [employer], [address], [place], [place], [address] , tel: [phone] [facility] HEMATURIAIDIOPATHI C URTICARIAROUTINE MEDICAL EXAM 8200 1 [facility]. [address] [facility], [address], [place], [facility], . tel:[phone] [employer], [address], [place], [place], [address] , tel: [phone] [facility] MENOPAUSAL DISORDER NEC 8 1 Nita Liu. [address] [facility], [address], [place], [facility], . tel:[phone] [employer], [address], [place], [place], [address] , tel: [phone] [facility] DERMATOPHYTOSIS OF GROIN 4200 1 [facility]. [address] [facility], [address], [place], [place], [facility], . tel:[phone] Family History Family Member Type Diagnosis Age At Onset No Information Payers Payer name Insurance type Covered republican ID Authoriza tion(s) No Information Social History Type Description Quantity Date Captured Comments Sex Female Smoking Status No Information Chief Complaint And Reason For Visit No Information Reason For Referral Reason For Referral No Information History Of Present Illness Encounter Date Complaint History Of Prese nt Illness No Information Functional Status Date Functional Assessmen t No Information Instructions Date Instruction Additional Infor mation No Information Assessments Type Assessment Date No Information Patient Care Teams Name Effective Dates (start - stop) Status Members No Information
--- OUTSIDE RECORDS SUMMARY | 2010-08-05 18:00 | XMS_ITS | Continuity of Care Document ---
Author Organization [facility] Address [address] [place] [address] Phone Care Team Providers Care Nightman Name Role Phone Teo Almonte MD Unavailable [...] Diagnoses Date Provider Providers Copied on Encounter [facility] [employer], [address] [facility], [place], [place], [address] , tel: [phone] [facility] No Information 201 1 Gage Bruce. [address], [place], [place], [address], [place]. tel:[phone] [facility], [address] [facility], [place], [place], [address] , tel: [phone] [facility] OTH ADV EFF MED/BIO SUB 2 5 No Information [facility], [address] [facility], [place], [place], [address] , [place] tel: [phone] [facility] MAL CANDACE LOWER LOBE LUNG 2 5 Bailey Alonso. [address] [place], [place], [address], [place]. tel:[phone] [facility], [address] [facility], [place], [place], [address] , [place] tel: [phone] [facility] CHEST SWELLING/MASS/LUMP 1200 5 Gage Bruce. [address], [place], [place], [address], [place]. tel:[phone] [employer], [address] [facility], [place], [place], [address] , [place] tel: [phone] [facility] NEUTROPENIACELLULI TIS OF ARM 200 4 Yadira Vasquez. [address], [place], [place], [address], [place]. tel:[phone] [employer], [address] [facility], [place], [place], [address] , [place] tel: [phone] [facility] LOCAL SUPRFICIAL SWELLNG 4 [facility]. [address] [facility], [address], [place], [place], [facility], [place]. tel:[phone] [employer], [address], [place], [place], [address] , [place] tel: [phone] [facility] NONSP ABN INTRATHOR NEC 4 No Information [facility] [employer], [address], [place], [place], [address] , [place] tel: [phone] [facility] OBSV-SUSPCT MAL NEOPLASM 4 Bailey Gavin. [address] [facility], [place], [place], [address], [place]. tel:[phone] [employer], [address], [place], [place], [address] , [place] tel: [phone] [facility] - [place] (Op) CHEST PAIN NOSCHR AIRWAY OBSTRUCT NECPOST-PROC STATES NEC [address] [facility], [place], [place], [address], [place]. tel:[phone] [employer], [address], [place], [place], [address] , [place] tel: [phone] [facility] LONG-TERM USE MEDS NECHYPERLIPIDEMIA NEC/NOSBENIGN HYPERTENSIONESOPHA GEAL REFLUX 4 [facility]. [address] [facility], [address], [place], [facility], [place]. tel:[phone] [employer], [address], [place], [place], [address] , [place] tel: [phone] [facility] HX-HEALTH HAZARDS NECHYPOTHYROIDISM NOSGYNECOLOGIC EXAMINATIONACUTE SINUSITIS NOS 3 [facility]. [address], [address], [place], [facility], [place]. tel:[phone] [employer], [address], [place], [place], [address] , [place] tel: [phone] [facility] LUMBAGO 0200 2 Anderson French. [address], [place], [place], [address], [place]. tel:[phone] [employer], [address], [place], [place], [address] , tel: [phone] [facility] HEMATURIAIDIOPATHI C URTICARIAROUTINE MEDICAL EXAM 8200 1 [facility]. [address] [facility], [address], [place], [facility], . tel:[phone] [employer], [address], [place], [place], [address] , tel: [phone] [facility] MENOPAUSAL DISORDER NEC 8 1 Nita Liu. [address] [facility], [address], [place], [facility], . tel:[phone] [employer], [address], [place], [place], [address] , tel: [phone] [facility] DERMATOPHYTOSIS OF GROIN 4200 1 [facility]. [address] [facility], [address], [place], [facility], . tel:[phone] Family History Family Member Type Diagnosis Age [...]
[2025-06-22] VITALS (7 sets, daily range): BP systolic 110–144; BP diastolic 68–86; PULSE 72–92; RESP 17–18; TEMP 36.6–36.7; O2SAT 98–100
--- NOTE | ~2025-06-22 | XR_ITS ---
EXAMINATION: XR chest 2V DATE: 06/22/2025 15:20 INDICATION: Dizziness. Previous surgery for lung cancer. TECHNIQUE: Frontal and lateral views of the chest were obtained. COMPARISON: Chest x-ray of 06/17/2022. FINDINGS: Stable postsurgical changes on both sides. No acute pulmonary lesions. Severe atherosclerotic aorta. IMPRESSION: 1. No acute findings. Stable postsurgical changes of lungs. Atherosclerotic aorta. Reviewed, dictated and finalized at location T. CAR DRIVER IMPRESSION: 1. No acute findings. Stable postsurgical changes of lungs. Atherosclerotic aor ta.
--- NOTE | ~2025-06-22 | CT_ITS ---
CT brain without contrast HISTORY:dizziness COMPARISON: None. TECHNIQUE: Multiplanar images were obtained of the head without intravenous contrast. FINDINGS: ICH: No acute intracranial hemorrhage, mass effect or midline shift. No extra- axial fluid collections. Mass(es): There is no mass or mass effect seen. CVA: No evidence of acute infarct is seen. CSF Spaces: There is no evidence of hydrocephalus. The CSF spaces are The CSF spaces are prominent, consistent with mild, generalized atrophy. Skull: The calvarium is intact. Sinuses/MastoidsVisualized paranasal sinuses and mastoid air cells are clear. IMPRESSION: No acute findings. No significant abnormality is seen. All CT scans at this facility are performed using low dose modulation techniques as appropriate to perform exam including the following: automated exposure control; use of iterative reconstruction technique; adjustment of the mA and/or kV according to patient size (this includes techniques or standardized protocols for targeted exams where dose is matched to indication/reason for exam). Reviewed, dictated and finalized at location B. MBLER ADJUSTER IMPRESSION: No acute findings. No significant abnormality is seen. All CT scans at this facility are performed using low dose modulation techniqu es as appropriate to perform exam including the following: automated exposure c ontrol; use of iterative reconstruction technique; adjustment of the mA and/or kV according to patient size (this includes techniques or standardized protocol s for targeted exams where dose is matched to indication/reason for exam).
--- NOTE | 2025-06-22 14:10 | ED.DIZZY ---
HPI - Dizziness General Chief Complaint: Dizziness <Michelle Henry PA-C - Last Filed: 06/23/25 09:12> Stated Complaint: lightheadedness <Michelle Henry PA-C - Last Filed: 06/23/25 09:12> Time Seen by Provider: 06/22/25 14:10 <Michelle Henry PA-C - Last Filed: 06/23/25 09:12> Focused HPI: This is a 75 year old female that presents to the ER for lightheadedness. Worsens when she stands up. She gets spells where she feels like she is gonna faint. Reports has been worsening the last couple days. Denies chest pain, shortness of breath. GENERAL: Well-appearing, well-nourished, and in no acute distress. HEAD: Normocephalic, atraumatic. CHEST: Clear to auscultation. ?No respiratory distress. HEART: Regular rate and rhythm.? NEURO: ?Alert and oriented x3. Patient screened in triage and initial orders placed.? ?Additional care and disposition to be based upon?diagnostic testing and treatment. <Michelle Henry PA-C - Last Filed: 06/23/25 09:12> History of Present Illness HPI Narrative: I agree with the above HPI <Oscar Ramírez MD - Last Filed: 06/23/25 07:44> Related Data Home Medications: Home Medications ?Medication ?Instructions ?Recorded ?Confirmed ?Last Taken ?Type Adult One Daily Multivitamin 1 tablet BYMOUTH DAILY 01/15/21 01/15/21 01/14/21 08:00 History Children's Calcium Gummies 1 dose PO BID 01/15/21 01/15/21 01/14/21 20:00 History amlodipine 5 mg tablet 5 mg PO DAILY 01/15/21 01/15/21 01/14/21 08:00 History atorvastatin 10 mg tablet 20 mg PO DAILY 01/15/21 01/15/21 01/14/21 08:00 History benazepril 40 mg tablet 40 mg PO DAILY 01/15/21 01/15/21 01/14/21 08:00 History lansoprazole 30 mg capsule,delayed 30 mg PO DAILY 01/15/21 01/15/21 01/14/21 08:00 History release <Michelle Henry PA-C - Last Filed: 06/23/25 09:12> Allergies/Adverse Reactions: Allergies Allergy/AdvReac Type Severity Reaction Status Date / Time iohexol (From contrast - CT, Allergy Hives Verified 06/17/22 12:11 X-RAY) Sulfa (Sulfonamide Allergy Hives Verified 06/17/22 12:31 Antibiotics) <Michelle Henry PA-C - Last Filed: 06/23/25 09:12> Review of Systems Review of Systems: All systems reviewed & are unremarkable except as noted in HPI and below <Oscar Ramírez MD - Last Filed: 06/23/25 07:44> [facility] Past Medical History Medical History: Medical History (Updated 06/23/25 @ 00:00 by Aleks Polanco) COVID-19 vaccine series completed (~09/2020) GERD (gastroesophageal reflux disease) Essential hypertension Hyperlipidemia Lumbosacral spondylosis with radiculopathy MRI December 2020 T12 compression fracture COPD (chronic obstructive pulmonary disease) Chronic diarrhea Depression with anxiety Lung cancer She believes that she had non-small cell lung cancer <Michelle Henry PA-C - Last Filed: 06/23/25 09:12> Surgical History Surgical History: Surgical History (Updated 01/16/21 @ 00:56 by Keri Parmar DO) History of vaginal hysterectomy History of tonsillectomy History of appendectomy History of lobectomy of lung Right upper and middle lobe lobectomy 2003 due to non small cell lung cancer, left partial lobectomy 2005, stereotactic radiation to the right lung in 2007 <Michelle Henry PA-C - Last Filed: 06/23/25 09:12> Family History Family History: Family History (Updated 01/16/21 @ 00:57 by Keri Parmar DO) Father , at age 77 Hypertension CHF (congestive heart failure) Mother , at age 69 Hypertension Sibling DIEUDONNE-2 gene mutation <Michelle Henry PA-C - Last Filed: 06/23/25 09:12> Social History Social History: Social History (Updated 01/16/21 @ 01:00 by Keri Parmar DO) Social History: She lives in [place] with her of 47 years. They have 2 daughters who are healthy. 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 She drinks 2 glasses a wine nightly. She smoked 1 pack of cigarettes per day for 34 years but quit smoking in 2003. She denies any illicit substance use. Primary care provider: Dr. Joshua Pan Code status: Full code Surrogate decision maker: Smoking packs per day: 1 Smoking cigarettes per day: 20.0 Years smoked: 34 Smoking pack-years: 34.00 Smoking status: Former smoker Tobacco type: cigarettes Alcohol intake: current Drinks per week: 7 Substance use: current Substance use type: marijuana Spiritual care concerns: No <Michelle Henry PA-C - Last Filed: 06/23/25 09:12> Exam Narrative: APPEARANCE: Well appearing, no pain, no distress, well-nourished. HEAD: normocephalic, atraumatic. EYES: PERRLA/EOMI, conjunctivae clear. NOSE: Normal no drainage EARS:TMS clear with good light reflex. THROAT: Pharynx clear, no exudate. NECK: Supple. No adenopathy, no masses. RESPIRATORY: Airway patent, respirations nonlabored. Clear to auscultation bilaterally, no rales, rhonchi, wheezing. CARDIOVASCULAR: Regular rate and rhythm without murmurs rubs or gallops. ABDOMINAL: Soft, nontender, nondistended, normal bowel sounds MUSCULOSKELETAL: Moves all extremities. Strength/ROM intact, No edema, No calf tenderness. NEURO: Alert. Cranial nerves II through XII intact. Good gait. Good coordination SKIN: Warm, dry. Normal Color <Oscar Ramírez MD - Last Filed: 06/23/25 07:44> Course Vital Signs Vital signs: Vital Signs Temperature 98.1 F 06/22/25 13:00 Pulse Rate 92 06/22/25 13:00 Respiratory Rate 17 06/22/25 13:00 Blood Pressure 123/78 06/22/25 13:00 Pulse Oximetry 98 06/22/25 13:00 Temperature 98 F 06/22/25 18:40 Pulse Rate 76 06/22/25 18:40 Respiratory Rate 18 06/22/25 18:40 Blood Pressure 127/84 06/22/25 18:40 Pulse Oximetry 100 06/22/25 18:40 Oxygen Delivery Room Air 06/22/25 16:37 <Michelle Henry PA-C - Last Filed: 06/23/25 09:12> Vital Signs Temperature 98.1 F 06/22/25 13:00 Pulse Rate 92 06/22/25 13:00 Respiratory Rate 17 06/22/25 13:00 Blood Pressure 123/78 06/22/25 13:00 Pulse Oximetry 98 06/22/25 13:00 Temperature 98 F 06/22/25 18:40 Pulse Rate 76 06/22/25 18:40 Respiratory Rate 18 06/22/25 18:40 Blood Pressure 127/84 06/22/25 18:40 Pulse Oximetry 100 06/22/25 18:40 Oxygen Delivery Room Air 06/22/25 16:37 <Oscar Ramírez MD - Last Filed: 06/23/25 07:44> MDM - Dizziness MDM Narrative Medical decision making narrative: 75-year-old female presenting to the emergency department for evaluation for complaint of intermittent lightheaded dizziness. Patient is currently afebrile with no leukocytosis and a stable hemoglobin. Patient has no significant acute abnormalities on her CMP UA was negative for infection chest x-ray shows no evidence of pneumonia, head CT was negative. patient had negative orthostatic vital signs. Patient was treated with 500 mL normal saline bolus and meclizine for vertigo. Patient was able to ambulate in the emergency department with no issues. Patient was unsure if her symptoms had improved but patient was in no distress and no acute findings on the workup. Patient family were updated on the results of the workup. Patient was encouraged To have close follow-up with her primary care physician. Suspect viral etiology versus dehydration versus is vertigo as the underlying etiology. <Oscar Ramírez MD - Last Filed: 06/23/25 07:44> Differential Diagnosis Differential diagnosis: Likely benign paroxysmal positional vertigo, orthostatic hypotension, vertebral basilar insufficiency, cerebrovascular accident, acute vestibular neuronitis and transient cerebral ischemia <Oscar Ramírez MD - Last Filed: 06/23/25 07:44> Lab Data Attestation: I reviewed the patient's lab results. <Oscar Ramírez MD - Last Filed: 06/23/25 07:44> Result diagrams: 06/22/25 14:42 06/22/25 14:42 <Michelle Henry PA-C - Last Filed: 06/23/25 09:12> Labs: Lab Results 06/22/25 Range/Units 14:42 WBC 8.9 (4.5-10.0) K/mm3 RBC 4.49 (4.2-5.4) M/mm3 Hgb 14.1 (12.0-15.0) g/dL Hct 41.2 (37.0-47.0) % MCV 91.8 (80-100) fl MCH 31.4 (26-34) pg MCHC 34.2 (32-36) g/dl RDW 13.1 (11.5-14.5) % Plt Count 402 H (150-375) k/mm3 MPV 8.1 (7.4-10.4) fl Immature Gran % (Auto) 0.2 (0-0.5) % Neut % (Auto) 71.9 (45.5-73.1) % Lymph % (Auto) 16.2 L (18.3-44.2) % [place] % (Auto) 8.2 (2.6-8.5) % Eos % (Auto) 2.7 (0-4.4) % Baso % (Auto) 0.8 (0.2-1.2) % Lymph # (Auto) 1.44 (0.9-3.2) K/mm3 [place] # (Auto) 0.7 H (0.1-0.6) K/mm3 Eos # (Auto) 0.2 (0-0.3) K/mm3 Baso # (Auto) 0.1 (0.0-0.1) K/mm3 Abs Immat Gran (auto) 0.02 (0.00-0.031) K/mm3 Absolute Neuts (auto) 6.4 (1.3-6.7) K/mm3 Absolute Nucleated RBC 0.000 (0.0-0.012) K/mm3 Nucleated RBC % 0.0 (0.0-0.2) % Sodium 131 L (137-145) mmol/L Potassium 4.0 (3.4-5.0) mmol/L Chloride 93 L (98-107) mmol/L Carbon Dioxide 30 (22-30) mmol/L Anion Gap 8 (4-12) mmol/L BUN 10 (7-17) mg/dL Creatinine 0.74 (0.7-1.0) mg/dL Estim Creat Clear Calc Not Reportable Estimated GFR > 60 (59 - ) Glucose 90 (65-110) mg/dL Calcium 9.8 (8.4-10.2) mg/dL Total Bilirubin 0.6 (0.2-1.3) mg/dL AST 38 H (14-36) U/L ALT 26 (6-35) U/L Alkaline Phosphatase 87 (38-126) U/L Total Protein 7.9 (6.3-8.2) g/dL Albumin 4.8 (3.5-5.1) g/dL Urine Color Yellow (Yellow) Urine Appearance Clear (Clear) Urine pH 7.0 (5.0-9.0) Ur Specific [place] 1.004 (1.001-1.035) Urine Protein Negative (Negative) mg/dL Urine Glucose (UA) Negative (Negative) mg/dL Urine Ketones Negative (Negative) mg/dL Ur Blood (Man) Negative (Negative) Urine Nitrate Negative (Negative) Urine Bilirubin Negative (Negative) Urine Urobilinogen 0.2 (<2.0) mg/dL Leukocyte Esterase Rfl Negative (Negative) YAKELIN/UL <Michelle Henry PA-C - Last Filed: 06/23/25 09:12> Lab Results 06/22/25 Range/Units 14:42 WBC 8.9 (4.5-10.0) K/mm3 RBC 4.49 (4.2-5.4) M/mm3 Hgb 14.1 (12.0-15.0) g/dL Hct 41.2 (37.0-47.0) % MCV 91.8 (80-100) fl MCH 31.4 (26-34) pg MCHC 34.2 (32-36) g/dl RDW 13.1 (11.5-14.5) % Plt Count 402 H (150-375) k/mm3 MPV 8.1 (7.4-10.4) fl Immature Gran % (Auto) 0.2 (0-0.5) % Neut % (Auto) 71.9 (45.5-73.1) % Lymph % (Auto) 16.2 L (18.3-44.2) % [place] % (Auto) 8.2 (2.6-8.5) % Eos % (Auto) 2.7 (0-4.4) % Baso % (Auto) 0.8 (0.2-1.2) % Lymph # (Auto) 1.44 (0.9-3.2) K/mm3 [place] # (Auto) 0.7 H (0.1-0.6) K/mm3 Eos # (Auto) 0.2 (0-0.3) K/mm3 Baso # (Auto) 0.1 (0.0-0.1) K/mm3 Abs Immat Gran (auto) 0.02 (0.00-0.031) K/mm3 Absolute Neuts (auto) 6.4 (1.3-6.7) K/mm3 Absolute Nucleated RBC 0.000 (0.0-0.012) K/mm3 Nucleated RBC % 0.0 (0.0-0.2) % Sodium 131 L (137-145) mmol/L Potassium 4.0 (3.4-5.0) mmol/L Chloride 93 L (98-107) mmol/L Carbon Dioxide 30 (22-30) mmol/L Anion Gap 8 (4-12) mmol/L BUN 10 (7-17) mg/dL Creatinine 0.74 (0.7-1.0) mg/dL Estim Creat Clear Calc Not Reportable Estimated GFR > 60 (59 - ) Glucose 90 (65-110) mg/dL Calcium 9.8 (8.4-10.2) mg/dL Total Bilirubin 0.6 (0.2-1.3) mg/dL AST 38 H (14-36) U/L ALT 26 (6-35) U/L Alkaline Phosphatase 87 (38-126) U/L Total Protein 7.9 (6.3-8.2) g/dL Albumin 4.8 (3.5-5.1) g/dL Urine Color Yellow (Yellow) Urine Appearance Clear (Clear) Urine pH 7.0 (5.0-9.0) Ur Specific [place] 1.004 (1.001-1.035) Urine Protein Negative (Negative) mg/dL Urine Glucose (UA) Negative (Negative) mg/dL Urine Ketones Negative (Negative) mg/dL Ur Blood (Man) Negative (Negative) Urine Nitrate Negative (Negative) Urine Bilirubin Negative (Negative) Urine Urobilinogen 0.2 (<2.0) mg/dL Leukocyte Esterase Rfl Negative (Negative) YAKELIN/UL <Oscar Ramírez MD - Last Filed: 06/23/25 07:44> Imaging Data Attestation: I personally reviewed and interpreted this imaging study as follows: <Oscar Ramírez MD - Last Filed: 06/23/25 07:44> My impression: chest x-ray: No acute cardiopulmonary abnormality <Oscar Ramírez MD - Last Filed: 06/23/25 07:44> Radiologist's impression: Impressions Head CT 06/22/25 15:12 IMPRESSION: No acute findings. No significant abnormality is seen. All CT scans at this facility are performed using low dose modulation techniques as appropriate to perform exam including the following: automated exposure control; use of iterative reconstruction technique; adjustment of the mA and/or kV according to patient size (this includes techniques or standardized protocols for targeted exams where dose is matched to indication/reason for exam). Chest X-Ray 06/22/25 15:23 IMPRESSION: 1. No acute findings. Stable postsurgical changes of lungs. Atherosclerotic aorta. <Oscar Ramírez MD - Last Filed: 06/23/25 07:44> Discharge Plan Discharge Clinical Impression: Dizziness, nonspecific <Michelle Henry PA-C - Last Filed: 06/23/25 09:12> Patient Disposition: Home <Michelle Henry PA-C - Last Filed: 06/23/25 09:12> Condition: Stable <DAVID Flores Last Filed: 06/23/25 09:12> Instructions: Antibiotic Form, Lightheadedness (ED), Dizziness (ED) <DAVID Flores Last Filed: 06/23/25 09:12> Additional Instructions: Have close follow-up with primary care physician. <DAVID Flores Last Filed: 06/23/25 09:12> Patient Language: Hungarian <Michelle Henry PA-C - Last Filed: 06/23/25 09:12> Prescriptions: No Action albuterol sulfate 90 mcg/actuation HFA aerosol inhaler 2 puff inhalation QID PRN (Reason: shortness of breath or wheezing) Qty: 8.5 1RF atorvastatin 10 mg tablet 20 mg PO DAILY amlodipine 5 mg tablet 5 mg PO DAILY benazepril 40 mg tablet 40 mg PO DAILY lansoprazole 30 mg Capsule,Delayed Release(Dr/Ec) 30 mg PO DAILY Adult One Daily Multivitamin 1 tablet BYMOUTH DAILY Children's Calcium Gummies 1 dose PO BID sertraline 50 mg tablet 25 mg PO DAILY Qty: 0 0RF <Michelle Henry PA-C - Last Filed: 06/23/25 09:12> Follow-up/Referrals: Viviane,MD Joshua [Primary Care Provider, Unknown] <Michelle Henry PA-C - Last Filed: 06/23/25 09:12>
--- NOTE | 2025-06-22 14:11 | ECG_ITS ---
Test Date: 2025-06-22 14:39:47 Measurements Intervals [place] Rate: 80 P: 69 [place]: 151 QRS: 83 QRSD: 74 T: 45 QT: 341 QTc: 394 Interpretive Statements SINUS RHYTHM Electronically Signed On 06-23-2025 05:47:35 FINISHING RANGE FEEDER by Andreas Mckeon D.O
--- OUTSIDE RECORDS SUMMARY | 2025-06-22 14:19 | XMS_ITS ---
Author Organization [facility] [address] [facility] Address [address] [place] [address] Care Team Providers Care Parts Advisor Name Role Phone Nam Elizondo MD Unavailable Unknown, Notinfile Primary Care Provider Unavail able Usha Kim NP Unavailable [phone] Active Problems Problem Noted Date Diagnosed Date Adenoma of sigmoid colon 07/03/2024 Diverticulosis of colon 07/03/2024 Abnormal weight loss 02/28/2024 Diarrhea 02/28/2024 Loose stools 02/28/2024 Lumbar radiculopathy 02/28/2024 Polyp of colon 02/28/2024 Stiff neck 02/28/2024 Uterine prolapse 02/28/2024 Overview (02/28/2024): repaired Vitamin D deficiency 02/28/2024 Malignant neoplasm of lung 12/08/2023 Thrombocytosis, unspecified 06/08/2022 Radiotherapy follow-up examination 02/23/2022 Unspecified menopausal and perimenopausal disord er 01/20/2022 Unilateral inguinal hernia, without obstruction or gangrene, not specified as recurrent 11/03/2021 Overview (02/28/2022): Added automatically from request for surgery [id number] Moderate episode of recurrent major depressive d isorder 10/12/2021 Overview (02/28/2024): Controlled on mirtazepine. No suicidal thoughts or intention to harm. Doing well. Anxiety 01/12/2021 High cholesterol 01/12/2021 Osteoporosis 01/12/2021 Overview (02/28/2024): On prolia and follows with endocrinology Personal history of bilateral lung cancer 2017 Personal history of radiation therapy 05/24/2018 Closed head injury 12/23/2011 Facial laceration 12/23/2011 Depressive disorder 09/15/2009 Emphysema/COPD 09/15/2009 Overview (02/28/2022): Pt w/ h/o small cell lung cancer & s/p bilateral lung resections. 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 On Breo and albuterol and doing well. Follows with pulmonary. 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 Gastroesophageal reflux disease 09/15/2009 HSV (herpes simplex virus) infection 09/15/2009 Primary hypertension 09/15/2009 Current Treatment and Therapy Plans No current plan information found. Past Treatment and Therapy Plans No past plan information found. Lifetime Dose Tracking * Chemical Lifetime Dose Automatic Entry Manual Entr y DLP 1,020.6 mGycm 1,020.6 mGycm 0 mGycm
--- OUTSIDE RECORDS SUMMARY | 2025-06-22 14:19 | XMS_ITS | Clinical Summary ---
Author Organization [place] [id number] [facility] Address [address] [place] [address] Care Team Providers Care Guest Services Lead Name Role Phone Nam Elizondo MD Unavailable Unknown, Notinfile Primary Care Provider Unavail able Usha Kim NP Unavailable [phone] Allergies Active Allergy Reactions Criticality Noted Date Comments Adhesive Other (See comments) Low 01/09/2022 Adhesive Tape-Silicones Rash Medium 08/25/2009 Iodinated Contrast Media Unknown,Hives Medium 08/25/19 10 Iodine Hives Medium 05/24/2018 Latex Rash Medium 02/28/2024 Metrizamide Urticaria Medium 08/25/2009 Other Hives Medium 08/25/2009 Sertraline Diarrhea Low 02/09/2021 Sulfa (Sulfonamide Antibiotics) Rash,Hives Medium 07/31 Medications benazepril (LOTENSIN) 40 mg tablet TK 1 T PO QD 3 02/22/20 18 Active amLODIPine (NORVASC) 5 mg tablet TK 1 T PO QD 3 03/19/20 18 Active buPROPion XL (WELLBUTRIN XL) 300 mg 24 hr tablet TK 1 T PO QD IN THE MORNING 4 03/19/20 18 Active lansoprazole (PREVACID) 30 mg capsule Take 1 capsule (30 mg total) by mouth Active atorvastatin (LIPITOR) 10 mg tablet TK 1 T PO D 04/27/20 Active escitalopram (LEXAPRO) 10 mg tablet 05/14/20 20 Active guaiFENesin-codein e (GUAITUSS AC) liquid 100-10 mg/5 mL Take 5 mL by mouth 3 (three) times a day as needed for cough 236 mL 08/02/19 22 Active Additional Information Patient not taking.Reported on 02/28/2023 calcium carbonate (OS-EKTA) 1,500 mg (600 mg elemental) tablet Take 1,200 mg by mouth daily 01/13/20 21 Active multivitamin with iron tablet Take 1 tablet by mouth daily Active OMEGA-3 FATTY ACIDS ORAL Take 1 tablet by mouth daily Active amoxicillin-clavul anate (AUGMENTIN) 875-125 mg per tablet 07/27/20 21 Active benzonatate (TESSALON) 100 mg capsule 07/27/20 21 Active cholecalciferol (VITAMIN D-3) 25 mcg (1,000 unit) tablet Take 2 tablets (2,000 Units total) by mouth daily 01/13/20 21 Active methylPREDNISolone (MEDROL DOSEPACK) 4 mg Dosepack 6 TABLETS ON DAY ONE, 5 TABLETS DAY TWO, 4 TABLETS DAY THREE, 3 TABLETS DAY FOUR, 2 TABLETS DAY FIVE, AND 1 TABLET DAY SIX 07/27/20 21 Active mirtazapine (REMERON) 15 mg tablet Take 15 mg by mouth daily 05/16/20 21 Active ondansetron ODT (ZOFRAN-ODT) 4 mg disintegrating tablet Take 2 tablets (8 mg total) by mouth every 8 (eight) hours as needed 01/16/20 21 Active atorvastatin (LIPITOR) 20 mg tablet 05/17/20 21 Active HYDROcodone-acetam inophen (NORCO) 5-325 mg per tablet TAKE 1 TABLET BY MOUTH EVERY 6 HOURS NEEDED FOR PAIN OR ACUTE PAIN 01/20/20 22 Active fluticasone furoate-vilanteroL (BREO ELLIPTA) 200-25 mcg/dose diskus inhaler INHALE 1 PUFF INTO THE LUNGS ONCE DAILY. RINSE AND SPIT OUT AFTER EACH USE 01/26/20 22 Active Trelegy Ellipta 100-62.5-25 mcg inhaler INHALE 1 PUFF INTO THE LUNGS DAILY 01/03/20 22 Active fluocinonide (LIDEX) 0.05 % external solution 12/02/19 22 Active FeroSuL 325 mg (65 mg iron) tablet Take 1 tablet by mouth every morning 02/18/20 22 Active doxycycline (PERIOSTAT) 20 mg tablet TAKE 2 TABLETS BY MOUTH EVERY DAY ON AN EMPTY STOMACH 02/18/20 22 Active cephalexin (KEFLEX) 500 mg capsule 01/20/20 22 Active albuterol HFA (PROVENTIL HFA,VENTOLIN HFA,PROAIR HFA) 90 mcg/actuation inhaler INHALE 2 PUFFS BY MOUTH INTO THE LUNGS FOUR TIMES DAILY NEEDED FOR SHORTNESS OF BREATH 02/17/20 22 Active denosumab (PROLIA SUBQ) 60 mg 07/07/20 20 Active atorvastatin (LIPITOR) 40 mg tablet 01/20/20 23 Active mirtazapine (REMERON) 30 mg tablet 01/17/20 23 Active calcium carbonate (CALCIUM 500 ORAL) Oral, daily, Dispense as written 06/30/20 19 Active ergocalciferol, vitamin D2, (VITAMIN D2 ORAL) 1000 IU, daily, Dispense as written 02/23/20 23 Active ALPRAZolam (XANAX) 0.25 mg tablet Take 1 tablet (0.25 mg total) by mouth daily as needed 02/22/20 24 Active azithromycin (ZITHROMAX) 250 mg tablet TAKE 2 TABLETS BY MOUTH FOR 1 DAY THEN TAKE 1 TABLET BY MOUTH DAILY FOR 4 DAYS 12/10/19 24 Active polycarbophil (FIBERCON) 625 mg tablet Take 1 tablet (625 mg total) by mouth daily Active peg 3350-sod sulf,rdwk-jde-qds (Suflave) 178.7-7.3-0.5 gram recon soln every 12 hours 09/24/19 24 Active Active Problems Problem Noted Date Diagnosed Date [...] (02/28/2022): Added automatically from request for surgery [id number] Moderate episode of recurrent major depressive d [...] simplex virus) infection 09/15/2009 Primary hypertension 09/15/2009 Surgical History Surgery Date Site/Laterality Comments LUNG SEGMENTECTOMY Lung Segmental Resection - (Added by TW Conv) ND TONSILLECTOMY PRIMARY/SEC ONDARY AGE 13/> Tonsillectomy Over Age 12 - (Added by TW Conv) ND TOTAL ABDOMINAL HYSTERECT W/WO RMVL TUBE OVARY Hysterectomy - (Added by TW Conv) ND TOTAL ABDOMINAL HYSTERECT W/WO RMVL TUBE OVARY Hysterectomy - (Added by TW Conv) ND TONSILLECTOMY PRIMARY/SEC ONDARY <AGE 12 Tonsillectomy - (Added by TW Conv) Medical History Medical History Date Comments Personal history of malignan t neoplasm of bronchus and lung Malignant Neoplasm Bronchus and Lung - (Added by TW Conv) Restless legs syndrome Restless legs syndrome - (Added by TW Conv) Personal history of other di seases of the circulatory system History of hypertension - (A dded by TW Conv) Personal history of other me ntal and behavioral disorders History of depression - (Add ed by TW Conv) Personal history of other en docrine, nutritional and metabolic disease History of hyperlipi demia - (Added by TW Conv) Personal history of other di seases of the respiratory system History of allergic rhinitis - (Added by TW Conv) Personal history of other di seases of the digestive system History of esophageal reflux - (Added by TW Conv) Social History Tobacco Use Types Packs/Day Years Used Date Smoking Tobacco: Former Smokeless Tobacco: Never Tobacco Cessation:Counseling Given: Not Answered Comments No Sex and Gender Information Value Date Recorded Sex Assigned at Not on file Legal Sex Female 6:36 AM SOCIAL MEDIA EXECUTIVE Gender Identity Not on file Sexual Orientation Not on file Occupation Industry Job Start Date Job End Date Retired Not on file Not on file Not on file Last Filed Vital Signs Vital Sign Reading Time Taken Comments Blood Pressure 139/87 08/02/2021 11:00 PM SOCIAL MEDIA EXECUTIVE Pulse 95 08/02/2021 11:00 PM SOCIAL MEDIA EXECUTIVE Temperature 36.7 C (98.1 F) 08/02/2021 1:41 PM SOCIAL MEDIA EXECUTIVE Respiratory Rate 20 08/02/2021 11:00 PM SOCIAL MEDIA EXECUTIVE Oxygen Saturation 97% 08/02/2021 11:00 PM SOCIAL MEDIA EXECUTIVE Inhaled Oxygen Concentration - - Weight 41.2 kg (90 lb 12.8 oz) 01/01/2025 1:09 P M CDT Height 157.5 cm (5' 2.01) 01/01/2025 1:09 PM CD T Body Mass Index 16.6 01/01/2025 1:09 PM CDT Plan of Treatment Health Maintenance Due Date Last Done Comments Breast Cancer Screening-Mammogram 1950 Colon Cancer Screening-Colonoscopy 1950 Depression Screening 1950 Fall Risk Assessment 1950 Hepatitis C Screening 1950 Osteoporosis Screening-Bone Density Scan 1950 Hepatitis B Screening 1969 Well Visit 65+ 2016 Covid-19 Vaccine (8 - 2024-2 6 season) 2025 07/10/2023, 12/14/2021, 06/08/2021, Additional history exists Influenza Vaccine (#1) 2025 , 05/17/2022, 05/19/2021, Additional history exists DTaP/Tdap/Td Vaccine (3 - Td or Tdap) 05/12/2032 05/12/2022, 12/23/2011 Zoster Vaccine Completed 10/30/2018, 04/01, 04/08/2014 Pneumococcal vaccine 65+ Completed 022, 07/02/2017, 07/03/2016 Insurance MEDICARE [place] [employer] [employer] [place] Care Teams Guest Services Lead Relationship Specialty Start Date End Date Unknown, Notinfile PCP - General 08/10/21 Nam Elizondo MD [address] [facility] [address] [place] [address] Radiation Oncologist Radiation Oncology 05/24/18 Usha Kim NP [id number] [facility] [address] [place] [address] Nurse Practitioner Radiation Oncology 02/27/23
--- OUTSIDE RECORDS SUMMARY | 2025-06-22 14:19 | XMS_ITS | Clinical Summary ---
Author Organization [facility] Address [address] [place] [id number] Care Team Providers Care Supervisor Keymodule Assembly Name Role Phone Joshua Pan MD Primary Care Provider [phone] Allergies Active Allergy Reactions Criticality Noted Date Comments Iodinated Contrast Media Hives Medium 08/25/2009 Iodine Hives,Unknown Medium 05/24/2018 Sertraline Diarrhea Low 02/09/2021 Sulfa Antibiotics Rash Medium 08/25/2009 Medications Doxycycline Hyclate 20 MG Tablet TAKE 2 TABLETS BY MOUTH EVERY DAY ON AN EMPTY STOMACH 2 Active amLODIPine (NORVASC) 5 MG Tablet Take 5 mg by mouth. 8 Active benazepril (LOTENSIN) 40 MG Tablet Take 40 mg by mouth. 8 Active atorvastatin (LIPITOR) 20 MG Tablet Take 20 mg by mouth. 1 Active mirtazapine (REMERON) 30 MG Tablet 2 Active Fluticasone Furoate-Vilante rol (BREO ELLIPTA) 200-25 MCG/ACT AEROSOL POWDER, BREATH ACTIVATED take 1 Puff by inhalation. 2 Active lansoprazole (PREVACID) 30 MG CAPSULE DELAYED RELEASE Take 30 mg by mouth. Active Vitamin D3 1000 UNIT Tablet Take 2,000 Units by mouth. 1 Active albuterol 108 (90 Base) MCG/ACT Aerosol Solution INHALE 2 PUFFS INTO THE LUNGS 4 TIMES DAILY NEEDED FOR SHORTNESS OF BREATH 2 Active Active Problems Problem Noted Date Diagnosed Date Thrombocytosis, unspecified 07/20/2022 Family History Medical History Relation Name Comments Cancer Brother Polycythemia Relation Name Status Comments Brother Alive Father Mother Sister Alive Social History Tobacco Use Types Packs/Day Years Used Date Smoking Tobacco: Former Cigarettes 1 30 1 974 - 2004 Smokeless Tobacco: Never Tobacco Cessation:Counseling Given: Not Answered Alcohol Use Standard Drinks/Week Comments Yes 2 (1 standard drink = 0.6 oz pur e alcohol) Comments No Sex and Gender Information Value Date Recorded Sex Assigned at Not on file Legal Sex Female 1:36 PM MONEY MARKET DEALER Gender Identity Not on file Sexual Orientation Not on file Last Filed Vital Signs Vital Sign Reading Time Taken Comments Blood Pressure 114/78 07/28/2022 11:14 AM MONEY MARKET DEALER Pulse 94 07/28/2022 11:14 AM MONEY MARKET DEALER Temperature 36.1 C (96.9 F) 07/28/2022 11:14 AM MONEY MARKET DEALER Respiratory Rate 18 07/28/2022 11:14 AM MONEY MARKET DEALER Oxygen Saturation 98% 07/28/2022 11:14 AM MONEY MARKET DEALER Inhaled Oxygen Concentration - - Weight 42.8 kg (94 lb 4.8 oz) 07/28/2022 11:14 A M MONEY MARKET DEALER Height 157.5 cm (5' 2) 07/28/2022 11:14 AM MONEY MARKET DEALER Body Mass Index 17.25 07/28/2022 11:14 AM MONEY MARKET DEALER Plan of Treatment Health Maintenance Due Date Last Done Comments Hepatitis C Virus (HCV) Screening 1950 Cologuard 1996 Immunochemical Fecal Occult Blood 1996 Medicare Subsequent AWV [id number] 06/29/2022 Influenza Immunization (#1) 03/30/202504/29, 05/12/2022, 05/19/2021, Additional history exists SARS-COV-2 Immunization ( season) 2025 05/20/2022, 12/14/2021, 06/08/2021, Additional history exists Respiratory Syncytial Virus (RSV) Immunization (Adult) (1 - 1-dose 75+ series) 2026 Colonoscopy 05/27/2030 05/27/2020, 05/14/2018 Colorectal Cancer Screening 05/27/2030 Zoster Immunization Completed 10/30/2018, 04/28/2018, 04/08/2014 Medicare Initial AWV [id number] Discontinued 06/29/2021 DTaP/Tdap/Td Immunization Discontinued 05/12/2022, TdaP Immunization Completed 05/12/2022, 12/23/2011 Pneumococcal Immunization (50+ years) Completed 07/05/2022, 07/02/2017, 07/03/2016 Pneumococcal Immunization Combined Discontinued 07/05/2022, 07/02/2017, 07/03/2016 Hepatitis B Immunization Aged Out No longer eligible based on patient's age to complete this topic Human Papillomavirus (HPV) Immunization Aged Out No longer eligible based on patient's age to complete this topic Meningococcal Immunization (ACWY) Aged Out No longer eligible based on patient's age to complete this topic Rotavirus Immunization Aged Out No lo nger eligible based on patient's age to complete this topic Insurance MEDICARE [facility] pt sitter Care Teams Supervisor Keymodule Assembly Relationship Specialty Start Date End Date Joshua Pan MD [address] [facility] [address] [place] [id number] PCP - General Internal Medicine 06/23/22
--- OUTSIDE RECORDS SUMMARY | 2025-06-22 14:19 | XMS_ITS | Clinical Summary ---
Author Organization [facility] Address [address] [facility] [place] [address] Care Team Providers Care Paper Machine Backtender Name Role Phone Unavailable Primary Care Provider Unavailabl e Source Comments [facility],non-owned Affiliates and Associated Physician Practices is amultiple site organization consisting of ambulatory clinics and hospital sitesin [place], [place], [place] and [place]. This disclosure is being madepursuant to the Care Everywhere program and may not contain all information available regarding this patient. Last updated 18.[facility] Allergies Active Allergy Reactions Criticality Noted Date Comments Adhesive Sensitivity Rash 08/25/2009 Contrast-Iodinated Agents For Ct/Other Urticaria 08/25/2009 Medications * Be aware that medications may not be up to date on this document. Alwaysverify current medications with the patient. benazepril (LOTENSIN) 10 MG tablet Take 10 mg by mouth daily. To take am of sx w/ sip of water Active simvastatin (ZOCOR) 20 MG tablet Take 20 mg by mouth at bedtime. Active paroxetine (PAXIL) 40 MG tablet Take 40 mg by mouth daily. Active lansoprazole (PREVACID) 30 MG capsule Take 30 mg by mouth daily before breakfast. Active ROPINirole (REQUIP) 2 MG tablet Take 2 mg by mouth at bedtime. Active CENTRUM PO Take 1 Tab by mouth daily. Active [place]-3 Fatty Acids (OMEGA 3) 1200 MG CAPS Take 1 Tab by mouth daily. Active hydrocodone-acet aminophen (VICODIN) 5-500 MG tablet Take 1 Tab by mouth every 4 hours as needed for Pain. 20 0 09/16/2009 Active ibuprofen (MOTRIN) 600 MG tablet Take 1 Tab by mouth every 6 hours as needed for Pain. may start 6 hrs after last dose of toradol. 30 0 09/16/2009 Active docusate sodium (COLACE) 100 MG capsule Take 1 Cap by mouth 2 times daily. 60 0 09/16/2009 Active nitrofurantoin monohyd macro crystals (MACROBID) 100 MG capsule Take 1 Cap by mouth daily. 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 IMO 04/29/2025 HTN (hypertension) 09/15/2009 HSV (herpes simplex virus) infection 09/15/2009 Depression 09/15/2009 Resolved Problems Problem Noted Date Diagnosed Date Resolved Date Uterine prolapse 09/16/2009 09/16/2009 Overview (09/16/2009): UTERINE PROLAPSE Cystocele 09/15/2009 09/16/2009 Social History Tobacco Use Types Packs/Day Years Used Date Smoking Tobacco: Former Cigarettes Comments:2004 Alcohol Use Standard Drinks/Week Comments Yes 0 (1 standard drink = 0.6 oz pur e alcohol) 1 glass of wine Comments No Sex and Gender Information Value Date Recorded Sex Assigned at Not on file Legal Sex Female 5:26 AM AERIAL CROP DUSTER Gender Identity Not on file Sexual Orientation Not on file Last Filed Vital Signs Vital Sign Reading Time Taken Comments Blood Pressure 97/52 09/16/2009 11:45 AM AERIAL CROP DUSTER Pulse 81 09/16/2009 11:45 AM AERIAL CROP DUSTER Temperature 37.4 C (99.4 F) 09/16/2009 11:45 AM AERIAL CROP DUSTER Respiratory Rate 18 09/16/2009 11:45 AM AERIAL CROP DUSTER Oxygen Saturation 96% 09/16/2009 11:45 AM AERIAL CROP DUSTER Inhaled Oxygen Concentration - - Weight 50.8 kg (112 lb) 08/25/2009 1:06 PM AERIAL CROP DUSTER Height 160 cm (5' 3) 08/25/2009 1:06 PM AERIAL CROP DUSTER Body Mass Index 19.84 08/25/2009 1:06 PM AERIAL CROP DUSTER Plan of Treatment Health Maintenance Due Date Last Done Comments BONE DENSITY TESTING 1950 COLOGUARD (AGES 45-75) - COL ON CA SCREENING 1950 COLON MONITORING 1950 COLONOSCOPY - COLON CA SCREENING 1950 CT COLONOGRAPHY - COLON CA SCREENING 1950 Colorectal Cancer Screening 1950 FIT - COLON CA SCREENING 1951 FLEX SIG - COLON CA SCREENING 1950 MAMMOGRAM 1950 HEPATITIS C SCREENING 05/25/1969 DTAP/TDAP/TD VACCINES (1 - Tdap) 1970 PNEUMOCOCCAL VACCINE 50+ (1 of 2 - PCV) 1970 Respiratory Syncytial Virus (RSV) Vaccine Pt: or over 60 yrs (1 - Risk 50-74 years 1-dose series) 2001 ZOSTER VACCINE (1 of 2) 2001 DEPRESSION SCREENING 07/30/2024 COVID-19 VACCINE (1 - 2024-2 6 season) 2025 INFLUENZA VACCINE (#1) 2025 HEPATITIS B VACCINE Aged Out No longe r eligible based on patient's age to complete this topic HIB VACCINE Aged Out No longer eligi ble based on patient's age to complete this topic HPV VACCINE Aged Out No longer eligi ble based on patient's age to complete this topic MENINGOCOCCAL (Group B) VACC INE SHARED DECISION-MAKING Aged Out No longer eligibl e based on patient's age to complete this topic MENINGOCOCCAL GROUPS A/C/Y/W VACCINE Aged Out No longer eligible b ased on patient's age to complete this topic Advance Directives * Full Code (Latest Code Status on File) Date Activated Date Inactivated Comments 09/15/2009 6:01 PM 09/17/2009 1:38 AM
[2025-06-22 14:49] LABS: Hematocrit 41.2 % (37.0-47.0); Hemoglobin 14.1 g/dL (12.0-15.0); Immature Granulocyte Percent A 0.2 % (0-0.5); Lymphocytes Absolute Auto 1.44 K/mm3 (0.9-3.2); Mean Corpuscular HGB Conc 34.2 g/dl (32-36); Mean Corpuscular Hemoglobin 31.4 pg (26-34); Mean Corpuscular Volume 91.8 fl (80-100); Nucleated Red Blood Cells Absolute Auto 0.000 K/mm3 (0.0-0.012); Nucleated Red Blood Cells Perc 0.0 % (0.0-0.2); Platelet Count Result 402 k/mm3 (150-375); Red Blood Count 4.49 M/mm3 (4.2-5.4); White Blood Count 8.9 K/mm3 (4.5-10.0)
[2025-06-22 14:50] LABS: Add Urine Microscopic? NO; Appearance Urine Clear (Clear); Glucose Urine UA Negative (Negative); Leukocyte Esterase Ur Negative LEU/UL (Negative); Nitrate Urine Negative (Negative); Specific Grav Ur 1.004 (1.001-1.035)
[2025-06-22 15:01] LABS: Alanine Aminotransferase 26 U/L (6-35); Albumin Level 4.8 g/dL (3.5-5.1); Alkaline Phosphatase 87 U/L (38-126); Anion Gap 8 mmol/L (4-12); Aspartate Amino Transferase 38 U/L (14-36); Bilirubin,Total 0.6 mg/dL (0.2-1.3); Blood Urea Nitrogen 10 mg/dL (7-17); Calcium 9.8 mg/dL (8.4-10.2); Carbon Dioxide 30 mmol/L (22-30); Chloride 93 mmol/L (98-107); Estimated Glomerular Filt Rate > 60; Glucose 90 mg/dL (65-110); Potassium 4.0 mmol/L (3.4-5.0); Sodium 131 mmol/L (137-145); Total Protein 7.9 g/dL (6.3-8.2)
[2025-06-22] MEDS: SODIUM CHLORIDE 0.9% IV 500 ML 999 ML IV CONT (17:28)
[2025-06-22] MEDS: MECLIZINE HCL 25 MG TABLET PO (17:28)
--- OUTSIDE RECORDS SUMMARY | 2025-06-22 18:30 | XMS_ITS | Encounter Summary ---
Author Organization [facility] Address [facility] [place] [address] Care Team Providers Care Devil Tender Name Role Phone Joshua Pan MD Primary Care Provider [phone] Sahil Radford MD Unavailable Unavailabl e Encounter Details Date Type Department Care Team (Late st Contact Info) Description 06/02/2022 Dynis Message Enc [facility] Multispecialty Care - [address] [place] [address] Wedding [employer], [facility] Provider Covid test Social History Tobacco Use Types Packs/Day Years Used Date Smoking Tobacco: Former Cigarettes 1 30 0 07/30/1973 - 07/30/2003 Smokeless Tobacco: Never Comments:counseled by Dr Renée meléndze. Alcohol Use Standard Drinks/Week Comments Yes 0 (1 standard drink = 0.6 oz pur e alcohol) 1-2 per day PHQ-2 Answer Date Recorded PHQ-2 Score - If the patient scores above 3, please move on to questions 3-9 0 05/31/2022 Comments No Sex and Gender Information Value Date Recorded Sex Assigned at Female 02/11/2025 1:50 PM CDT Legal Sex Female 9:01 AM CDT Gender Identity Female 02/11/2025 1:50 PM CDT Sexual Orientation Straight 02/11/2025 1: 50 PM CDT COVID-19 Exposure Response Date Recorded In the last 10 days, have yo u been in contact with someone who was confirmed or suspected to have Coronavirus/COVID-19? No / Unsure 05/31/2022 1:32 PM CDT documented as of this encounter Functional Status * RETIRED Are you deaf or do you have serious difficulty hearing Answer Date of Assessment Author Status No 01/20/2022 1:44 PM CDT Activ e * RETIRED Are you blind or do you have serious difficulty seeing, even when wearing glasses? Answer Date of Assessment Author Status No 01/20/2022 1:44 PM CDT Activ e * Do you have serious difficulty walking or climbing stairs? Answer Date of Assessment Author Status No 01/20/2022 1:44 PM Leandra Benavides RN Active * Do you have difficulty dressing or bathing? Answer Date of Assessment Author Status No 01/20/2022 1:44 PM Leandra Benavides RN Active * Because of a physical, mental, or emotional condition, do you have difficulty doing errands alone such as visiting a doctor's office or shopping? Answer Date of Assessment Author Status No 01/20/2022 1:44 PM Leandra Benavides RN Active documented as of this encounter Mental Status * Because of a physical, mental, or emotional condition, do you have serious difficulty concentrating, remembering, or making decisions? Answer Entry Date Author Status No 01/20/2022 1:44 PM Leandra Benavides RN Active documented in this encounter Plan of Treatment Upcoming Encounters Date Type Department Care Team (Late st Contact Info) Description 08/04/2025 1:00 PM CERTIFIED JUVENILE PROBATION OFFICER Office Visit [facility] Multispecialty [facility] [place] [address] [address] [place] [address] Joshua Pan MD [address] [place] [address] documented as of this encounter Goals Goal Patient Goal Type Associated Problems Recent Progress Patient-Stated? Author Health - patient able to perform ADLs independently General No Annabel Staton RN documented as of this encounter Visit Diagnoses Not on filedocumented in this encounter Additional Health Concerns Infection Onset Date Last Indicated Resolved Time COVID-19 Confirmed 05/31/2022 05/31/2022 12:32 AM CERTIFIED JUVENILE PROBATION OFFICER COVID-19 Rule Out 04/25/2023 03/30/2023 04/25/2023 9:46 AM CDT COVID-19 Rule Out 08/07/2023 08/07/2023 08/07/2023 2:30 PM CERTIFIED JUVENILE PROBATION OFFICER Influenza - Seasonal 08/07/2023 08/07/2023 024 12:35 AM CERTIFIED JUVENILE PROBATION OFFICER COVID-19 Rule Out 12/10/2023 12/10/2023 12/10/2023 3:31 PM CDT Assessment Noted Time PHQ-9 Depression Total Score: 2 06/29/20 10:49 AM CERTIFIED JUVENILE PROBATION OFFICER documented as of this encounter Care Teams Devil Tender Relationship Specialty Start Date End Date Joshua Pan MD [address] [facility] [address] [place] [address] PCP - General INTERNAL MEDICINE 01/11/21 Sahil Radford MD [address] [facility] [address] [place] [address] GASTROENTEROLOGY 06/29/21 documented as of this encounter
--- OUTSIDE RECORDS SUMMARY | 2025-06-22 18:30 | XMS_ITS | Encounter Summary ---
Author Organization [facility] Address [facility] [place] [address] Care Team Providers Care Construction Flagger Name Role Phone Joshua Pan MD Primary Care Provider [phone] Sahil Radford MD Unavailable Unavailabl e Encounter Details Date Type Department Care Team (Latest Contact Info) Description 02/22/2024 [employer] Message Enc [facility] Medical Group Multispecialty Care - [place] [address] [address] [place], [place] [phone] [place] [address] [place] [address] [address] [place], [place] [phone] Request for medication Social History Tobacco Use Types Packs/Day Years Used Date Smoking Tobacco: Former Cigarettes 1 30 0 07/30/1973 - 07/30/2003 Smokeless Tobacco: Never Comments:counseled by Dr Renée meléndez. Alcohol Use Standard Drinks/Week Comments Yes 23.3 (1 standard drink = 0.6 oz pure alcohol) 1-2 per day PHQ-2 Answer Date Recorded Patient Health Questionnaire-2 Score 0 06/11/2023 Comments No Sex and Gender Information Value Date Recorded Sex Assigned at Female 02/11/2025 1:50 PM CDT Legal Sex Female 9:01 AM CDT Gender Identity Female 02/11/2025 1:50 PM CDT Sexual Orientation Straight 02/11/2025 1: 50 PM CDT documented as of this encounter [...] Assessment Author Status No 01/20/2022 1:44 PM JUDET Leandra Hawley RN Active * Do you have difficulty [...] st Contact Info) Description 08/04/2025 1:00 PM MASTER CONTROL TECHNICIAN Office Visit [facility] Medical Group Multispecialty Care - [place] [address] [address] [place], [place] [phone] Joshua Pan MD [address] [place] [address] documented as of this encounter Goals Goal Patient Goal Type Associated Problems Recent Progress Patient-Stated? Author Health - patient able to perform ADLs independently General Annabel Chatman RN documented as of this encounter Visit Diagnoses Not on filedocumented in this encounter Additional Health Concerns Assessment Noted Time PHQ-9 Depression Total Score: 0 06/11/20 23 8:54 AM MASTER CONTROL TECHNICIAN documented as of this encounter Care Teams Construction Flagger Relationship Specialty Start Date End Date Joshua Pan MD [address] [place] [phone] PCP - General INTERNAL MEDICINE 01/11/21 Sahil Radford MD [address] [address] GASTROENTEROLOGY 06/29/21 documented as of this encounter
--- OUTSIDE RECORDS SUMMARY | 2025-06-22 18:30 | XMS_ITS | Encounter Summary ---
Author Organization [facility] Address [facility] [place] [address] Care Team Providers Care Customs Compliance Director Name Role Phone Joshua Pan MD Primary Care Provider Sahil Radford MD Unavailable Unavailabl e Encounter Details Date Type Department Care Team (Latest Contact Info) Description 05/29/2024 [employer] Message Enc [facility] Medical Group Multispecialty Care - [place] [address] [address] [place] [address] Joshua Pan MD [address] [place] [address] [address] [place], [place] [phone] Follow-up appointment Social History Tobacco Use Types Packs/Day Years Used Date Smoking Tobacco: Former Cigarettes 1 30 0 07/30/1973 - 07/30/2003 Smokeless Tobacco: Never Comments:counseled by Dr Renée meléndez. Alcohol Use Standard Drinks/Week Comments Yes 23.3 (1 standard drink = 0.6 oz pure alcohol) 1-2 per day PHQ-2 Answer Date Recorded Patient Health Questionnaire-2 Score 0 04/02/2024 Comments No Sex and Gender Information Value [...] Author Status No 01/20/2022 1:44 PM CDT Leandra Hawley RN Active * Do you have difficulty dressing or bathing? Answer Date of Assessment Author Status No 01/20/2022 1:44 PM CDT Leandra Hawley RN Active * Because of a physical, mental, or emotional condition, do you have difficulty doing errands alone such as visiting a doctor's office or shopping? Answer Date of Assessment Author Status No 01/20/2022 1:44 PM CDT Leandra Hawley RN Active documented as of this encounter Mental Status * Because of a physical, mental, or emotional condition, do you have serious difficulty concentrating, remembering, or making decisions? Answer Entry Date Author Status No 01/20/2022 1:44 PM CDT Leandra Hawley RN Active documented in this encounter Plan of Treatment Upcoming Encounters Date Type Department Care Team (Late st Contact Info) Description 08/04/2025 1:00 PM PRICING ANALYST Office Visit [facility] Medical Group Multispecialty Care - [place] [address] [address] [place], [place] [phone] Joshua Pan MD [address] [place] [address] documented as of this encounter Goals Goal Patient Goal Type Associated Problems Recent Progress Patient-Stated? Author Health - patient able to perform ADLs independently General No Annabel Staton RN documented as of this encounter Visit Diagnoses Not on filedocumented in this encounter Additional Health Concerns Assessment Noted Time PHQ-9 Depression Total Score: 2 04/02/20 24 12:32 PM CDT documented as of this encounter Care Teams Customs Compliance Director Relationship Specialty Start Date End Date Joshua Pan MD [address] [place] [phone] PCP - General INTERNAL MEDICINE 01/11/21 Sahil Radford MD [address] [facility] [address] [place] [id number] GASTROENTEROLOGY 06/29/21 documented as of this encounter
--- OUTSIDE RECORDS SUMMARY | 2025-06-22 18:30 | XMS_ITS | Clinical Summary ---
Author Organization [facility] Address [address] [facility] [place] [address] Care Team Providers Care Cytotechnologist Name Role Phone Unavailable Primary Care Provider Unavailabl e Source Comments [facility],non-owned Affiliates and Associated Physician Practices is amultiple site organization consisting of ambulatory clinics and hospital sitesin [place], [place], [place] and [place]. This disclosure is being madepursuant to the Care Everywhere program and may not contain all information available regarding this patient. Last updated 18.[facility] Allergies Active Allergy Reactions Criticality Noted Date [...] Take 1 Tab by mouth daily. Active [place]-3 Fatty Acids (OMEGA 3) 1200 MG CAPS [...] in 2003 and part of Left lung [id number] Emphysema/COPD 09/15/2009 Overview (04/29/2025): Pt w/ h/o [...] on file Legal Sex Female 5:26 AM HUMAN PERFORMANCE PROFESSOR Gender Identity Not on file Sexual Orientation Not on file Last Filed Vital Signs Vital Sign Reading Time Taken Comments Blood Pressure 97/52 09/16/2009 11:45 AM HUMAN PERFORMANCE PROFESSOR Pulse 81 09/16/2009 11:45 AM HUMAN PERFORMANCE PROFESSOR Temperature 37.4 C (99.4 F) 09/16/2009 11:45 AM HUMAN PERFORMANCE PROFESSOR Respiratory Rate 18 09/16/2009 11:45 AM HUMAN PERFORMANCE PROFESSOR Oxygen Saturation 96% 09/16/2009 11:45 AM HUMAN PERFORMANCE PROFESSOR Inhaled Oxygen Concentration - - Weight 50.8 kg (112 lb) 08/25/2009 1:06 PM HUMAN PERFORMANCE PROFESSOR Height 160 cm (5' 3) 08/25/2009 1:06 PM HUMAN PERFORMANCE PROFESSOR Body Mass Index 19.84 08/25/2009 1:06 PM HUMAN PERFORMANCE PROFESSOR Plan of Treatment Health Maintenance Due Date [...]
--- OUTSIDE RECORDS SUMMARY | 2025-06-22 18:30 | XMS_ITS | Encounter Summary ---
Author Organization [facility] Address [facility] [place] [address] Care Team Providers Care Secretary Book Keeper Name Role Phone Joshua Pan MD Primary Care Provider [phone] Sahil Radford MD Unavailable Unavailabl e Encounter Details Date Type Department Care Team (Late st Contact Info) Description 12/18/2024 MyCBoardBook[employer] Message Enc [facility] Medical Group Multispecialty Care - [place] [address] [address] [place] [address] [place] [address] [place] [address] [address] [place], [place] [phone] Restless Legs Social History Tobacco Use Types Packs/Day Years [...] st Contact Info) Description 08/04/2025 1:00 PM VEGETABLE CUTTER Office Visit [facility] Medical Group Multispecialty Care - [place] [address] [address] [place], [place] [phone] Joshua Pan MD [address] [place] [address] documented as of this encounter Goals Goal [...] documented as of this encounter Care Teams Secretary Book Keeper Relationship Specialty Start Date End Date Joshua Pan MD [address] [place] [phone] PCP - General INTERNAL MEDICINE 01/11/21 Sahil Radford MD [address] [facility] [address] [place] [address] GASTROENTEROLOGY 06/29/21 documented as of this encounter
--- OUTSIDE RECORDS SUMMARY | 2025-06-22 18:30 | XMS_ITS ---
Author Organization [facility] [address] [facility] Address [address] [place] [address] Care Team Providers Care Hide Examiner Name Role Phone Nam Elizondo MD Unavailable Unknown, Notinfile Primary Care Provider Unavail able Usha Kim NP Unavailable [phone] Active Problems Problem Noted Date Diagnosed Date [...] (02/28/2022): Added automatically from request for surgery [id number] Moderate episode of recurrent major depressive d [...]
--- OUTSIDE RECORDS SUMMARY | 2025-06-22 18:30 | XMS_ITS | Clinical Summary ---
Author Organization [facility] Address [address] [place] [address] Care Team Providers Care Rock Climbing Team Member Name Role Phone Joshua Pan MD Primary Care Provider [phone] Sahil Radford MD Unavailable Unavailabl e Allergies Active Allergy Reactions Criticality Noted Date Comments Tape Contact Dermatitis 01/09/2022 Iodine Unknown 05/24/2018 Iodinated Contrast Media Hives Medium 08/25/2009 Latex Rash Medium 02/28/2024 Sertraline Diarrhea 02/09/2021 Sulfa Antibiotics Rash Medium 08/25/2009 Medications Multiple Vitamins-Minerals (MULTIVITAMIN ADULTS 50+ OR) Take 1 tablet by mouth daily. Active fluocinonide 0.05 % external solution Apply topically as needed (scaly patches on scalp). 12/02/19 22 Active polycarbophil (FIBERCON) 625 MG tablet Take 1 tablet (625 mg total) by mouth daily. Active ALPRAZolam (XANAX) 0.25 MG tabletIndications :Anxiety Take 1 tablet (0.25 mg total) by mouth daily as needed for Sleep. Take about 15 minutes prior to taking a flight to help with flight anxiety. 4 tablet 02/22/20 24 Active Doxycycline Hyclate 20 MG Tab 03/28/20 24 Active valACYclovir (VALTREX) 1 g tabletIndications :HSV (herpes simplex virus) infection Take 1 tablet (1,000 mg total) by mouth 2 (two) times daily. 21 tablet 02/12/20 25 Active rOPINIRole (REQUIP) 0.25 MG tabletIndications :RLS (restless legs syndrome) Take 1 tablet (0.25 mg total) by mouth nightly. 90 tablet 02/12/20 25 Active lansoprazole (PREVACID) 30 MG capsuleIndication s:Gastroesophagea l reflux disease without esophagitis Take 1 capsule (30 mg total) by mouth daily. 90 capsule 02/12/20 25 Active fluticasone-salme terol (WIXELA INHUB) 500-50 MCG/ACT inhalerIndication s:Pulmonary emphysema, unspecified emphysema type (CMS/HCC HHS/HCC) Inhale 1 puff into the lungs 2 (two) times daily. 60 each 02/12/20 25 Active atorvastatin (LIPITOR) 40 MG tabletIndications :Mixed hyperlipidemia Take 1 tablet (40 mg total) by mouth nightly at bedtime. 90 tablet 02/12/20 25 Active amLODIPine (NORVASC) 5 MG tabletIndications :Primary hypertension Take 1 tablet (5 mg total) by mouth daily. 90 tablet 02/12/20 25 Active albuterol sulfate HFA 108 (90 Base) MCG/ACT inhalerIndication s:Pulmonary emphysema, unspecified emphysema type (CMS/HCC HHS/HCC) Inhale 2 puffs into the lungs 4 (four) times daily as needed for Shortness of breath. 18 g 5 02/12/20 25 Active benazepril (LOTENSIN) 40 MG tabletIndications :Primary hypertension TAKE 1 TABLET(40 MG) BY MOUTH DAILY 90 tablet 05/27/20 25 Active mirtazapine (REMERON) 45 MG tabletIndications :Mild episode of recurrent major depressive disorder,Anxiety TAKE 1 TABLET(45 MG) BY MOUTH EVERY NIGHT AT BEDTIME tablet 05/27/20 25 Active mirtazapine (REMERON) 45 MG tabletIndications :Mild episode of recurrent major depressive disorder,Anxiety Take 1 tablet (45 mg total) by mouth nightly at bedtime. 90 tablet 02/12/20 025 Discontinued benazepril (LOTENSIN) 40 MG tabletIndications :Primary hypertension TAKE 1 TABLET(40 MG) BY MOUTH DAILY 90 tablet 02/21/20 25 025 Discontinued Active Problems Problem Noted Date Diagnosed Date Malignant neoplasm of lung, unspecified laterality, unspecified part of lung 12/08/2023 Elevated platelet count 06/08/2022 Moderate episode of recurrent major depressive d isorder 10/12/2021 Overview (01/31/2022): Controlled on mirtazepine. No suicidal thoughts or intention to harm. Doing well. Mixed hyperlipidemia 01/12/2021 Anxiety 01/12/2021 Osteoporosis 01/12/2021 Overview (01/12/2021): On prolia and follows with endocrinology History of therapeutic radiation 05/24/2018 Depression 09/15/2009 Emphysema/COPD 09/15/2009 Overview (01/31/2022): On Breo and albuterol and doing well. Follows with pulmonary. 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 GERD (gastroesophageal reflux disease) 0 HSV (herpes simplex virus) infection 09/15/2009 HTN (hypertension) 09/15/2009 Personal history of other ma lignant neoplasm of bronchus and lung 09/15/2009 Overview (01/12/2021): 2 lobes of Right lung resected in 2003 and part of Left lung [id number] Resolved Problems Problem Noted Date Diagnosed Date Resolved Date Hematoma 01/20/2022 05/14/2022 Unilateral inguinal hernia, without obstruction or gangrene, not specified as recurrent 11/03/2021 05/31/2022 Overview (11/03/2021): Added automatically from request for surgery [id number] Encounters Date Type Department Care Team Description 04/07/2025 Scan HEALTH INFO SRVCS Scanned, Doc Med Group from Last 3 Months Immunizations Immunization Administration Dates Next Due Abrysvo Respiratory Syncytia l Virus (RSV) 0.5 mL, PF 04/30/2023 FLUAD (IIV, Trivalent, 0.5 M L Pre-filled Syringe) 04/26/2024 Fluad influenza vaccine, Gigi drivalent (aIIV4), Inactivated, adjuvanted, preservative free, 0.5 mL,IM use 05/18/2023,04/28/2019 Fluzone High Dose - >Age 65 (Prefilled Syringe) 05/12/2022,05/19/2021,04/13/2020 Influenza (Generic) 04/08/2014 Influenza Adult (Generic) 05/17/2022,,04/28/2020,2017,05/20/2017 MODERNA COVID-19 BIVALENT (1 2+), MRNA, LNP-S, PF 05/20/2022 MODERNA COVID-19 (12+) MRNA, LNP-S, PF, 100 MCG/ 0.5 ML DOSE 07/10/2023,06/08/2021,10/09/2020,2020 MODERNA COVID-19 (12+), MRNA , LNP-S, PF, 50 MCG/0.5 ML (SPIKEVAX) 04/26/2024,07/10/2023 MODERNA COVID-19 (BOX CLOSING MACHINE OPERATOR PETER MAO), MRNA, LNP-S, PF, 50 MCG/ 0.25 ML DOSE 12/14/2021 PFIZER COVID-19 (ORIGINAL FORMULATION, PURPLE CAP) mRNA, LNP-S, PF, 30 MCG/0.3 ML DOSE 10/09/2020,09/11/2020 Pneumococcal (Pneumovax 23) 07/05/2022, 7 Pneumococcal (Prevnar 13) 07/03/2016 Shingrix 10/30/2018,04/28/2018 Tdap (Generic) 05/12/2022,12/23/2011 Zoster (Zostavax) 95170 Unt/0.65Ml 04/08/2014 Family History Medical History Relation Comments clotting problem Brother 1 No Known Problems Brother 2 Hypertension Father Cancer Mother cervical No Known Problems Sister Relation Status Comments Brother 1 Alive Brother 2 Alive Father Mother Sister Alive Social History Tobacco Use Types Packs/Day Years Used Date Smoking Tobacco: Former Cigarettes 1 30 0 07/30/1973 - 07/30/2003 Smokeless Tobacco: Never Tobacco Cessation:Counseling Given: Yes Comments:counseled by Dr Pan. Alcohol Use Standard Drinks/Week Comments Yes 23.3 (1 standard drink = 0.6 oz pure alcohol) 1-2 per day PHQ-2 Answer Date Recorded Patient Health Questionnaire-2 Score 0 02/11/2025 Comments No Sex and Gender Information Value Date Recorded Sex Assigned at Female 02/11/2025 1:50 PM CDT Legal Sex Female 9:01 AM CDT Gender Identity Female 02/11/2025 1:50 PM CDT Sexual Orientation Straight 02/11/2025 1: 50 PM CDT Last Filed Vital Signs Vital Sign Reading Time Taken Comments Blood Pressure 119/62 02/11/2025 1:50 PM CDT Pulse 79 02/11/2025 1:50 PM CDT Temperature 37.4 C (99.4 F) 02/11/2025 1:50 PM CDT Respiratory Rate 18 02/11/2025 1:50 PM CDT Oxygen Saturation 97% 02/11/2025 1:50 PM CDT Inhaled Oxygen Concentration - - Weight 40.6 kg (89 lb 9.6 oz) 02/11/2025 1:50 PM CDT Height 157.5 cm (5' 2) 02/11/2025 1:50 PM CDT Body Mass Index 16.39 02/11/2025 1:50 PM CDT Plan of Treatment Upcoming Encounters Date Type Department Care Team (Late st Contact Info) Description 08/04/2025 1:00 PM DATA BASE ADMINISTRATOR Office Visit [facility] Medical Group Multispecialty Care - [place] [address] [address] [place], [place] [id number] [place] [address] [place] [address] [address] [place] [address] Health Maintenance Due Date Last Done Comments COVID-19 Vaccine ( season) 2025 04/26/2024, 07/10/2023, 07/10/2023, Additional history exists Influenza Adult (#1) 2025 04/26/2024, 05/18/2023, 05/17/2022, Additional history exists Mammogram Screening 08/22/2026 08/22/2024, 08/22/2024, 06/15/2023, Additional history exists DTaP, Tdap and Td Vaccines (3 - Td or Tdap) 05/12/2032 05/12/2022, 12/23/2011 Colorectal Cancer Screening Colonoscopy (10 Years) 12/02/2033 12/03/2023, 08/30/2021, 05/27/2020 Annual Medicare Wellness Visit 07/16/2055 06/29/2021 Postponed from 06/30/2022 (Patient Refused) Dexa Scan (General) Completed 05/02/2018 Zoster Vaccines Completed 10/30/2018, 04/01, 04/08/2014 Hepatitis C Completed 01/12/2021 Pneumococcal Vaccine: 50+ Years Completed 07/05/2022, 07/02/2017, 07/03/2016 RSV Immunization or 60+ Years Completed 04/30/2023 PHQ-2 (Physician [facility]) Completed 02/11/2025 Hepatitis A Vaccines Aged Out No long er eligible based on patient's age to complete this topic Meningococcal B Vaccine Aged Out No l onger eligible based on patient's age to complete this topic Meningococcal Vaccine Aged Out No blanche david eligible based on patient's age to complete this topic RSV Immunizations Under 20 Months Aged Out No longer eligible based on patient's age to complete this topic Goals Goal Patient Goal Type Associated Problems Recent Progress Patient-Stated? Author Health - patient able to perform ADLs independently General No Annabel Staton, RN Medical Devices Implanted Type Area Medical Device Sales Consultant Device Identifier Shelf Expiration Date Model / Serial / Lot Plug Hernia Light Mesh Xlarge - [id number] Implanted:Qty : 1 on 01/19/2022 by Milo Espinosa MD at [facility] Mesh Left: Abdomen [employer] - [employer] [id number] 06/26/2026 [id number] / / [id number] Procedures Procedure Name Priority Date/Time Associated Diagnosis Comments MAMMOGRAM GENERIC (SCAN ORDER) 08/22/2024 COLONOSCOPY GENERIC (SCAN ORDER) 12/03/2023 HEPATITIS C ANTIBODY Routine 01/12/2021 10:59 AM CDT Encounter to establish care BONE DENSITY GENERIC (SCAN ORDER) 05/02/2018 from Last 3 Months or Most Recently Relevant to Health Maintenance Results * MAMMOGRAM GENERIC (SCAN ORDER) (08/22/2024) Anatomical Region Laterality Modality Other 08/22/2024 us Doc [facility] Scanned SCANNING Final Resu lt * COLONOSCOPY GENERIC (SCAN ORDER) (12/03/2023) 12/03/2023 us Doc Med [facility] Scanned SCANNING Final Resu lt * HEPATITIS C ANTIBODY (01/12/2021 10:59 AM CDT) HEPATITIS C AB NON-REACTI VE NON-REACT LIEN 01/12/2021 9:30 PM CDT [facility] Comment: ANTIBODIES TO HCV NOT DETECTED. DOES NOT EXCLUDE THE POSSIBILITY OF EXPOSURE TO HCV. 01/12/2021 10:5 9 AM CDT Joshua Pan MD LABORATORY Final Result Performing Organization Address City/State/[facility] Co de Phone Number [facility] [address] [place] [address], [phone] * BONE DENSITY GENERIC (05/02/2018) Anatomical Region Laterality Modality Other 05/02/2018 Narrative 05/02/2018 Ordered by an unspecified provider. us Documents Scanned SCANNING Final Result from Last 3 Months or Most Recently Relevant to Health Maintenance Insurance MEDICARE COUNTRY INSURANCE Advance Directives * Full Code (Latest Code Status on File) Date Activated Date Inactivated Comments 01/20/2022 12:56 PM 01/22/2022 1:32 PM Care Teams Rock Climbing Team Member Relationship Specialty Start Date End Date Joshua Pan MD [address] [address] PCP - General INTERNAL MEDICINE 01/11/21 Sahil Radford MD [address] [facility] [address] [place] [address] GASTROENTEROLOGY 06/29/21
--- OUTSIDE RECORDS SUMMARY | 2025-06-22 18:30 | XMS_ITS | Encounter Summary ---
Author Organization [facility] Address [facility] [place] [address] Care Team Providers Care Director Post Name Role Phone Joshua Pan MD Primary Care Provider [phone] Sahil Radford MD Unavailable Unavailabl e Encounter Details Date Type Department Care Team (Late st Contact Info) Description 01/16/2022 MyCTriacta Power Technologiest Message Enc [facility] Medical Group Multispecialty Care - [address] [place], [place] [phone] Joshua Pan MD [address] [facility] [address] [place], [place] [phone] Breo inhaler Social History Tobacco Use Types Packs/Day Years Used Date Smoking Tobacco: Former Cigarettes 1 30 1 974 - 2004 Smokeless Tobacco: Never Comments:counseled by Dr Renée meléndez. Alcohol Use Standard Drinks/Week Comments Yes 0 (1 standard drink = 0.6 oz pur e alcohol) 1-2 per day PHQ-2 Answer Date Recorded PHQ-2 Score - If the patient scores above 3, please move on to questions 3-9 1 06/29/2021 Comments No Sex and Gender Information Value [...] suspected to have Coronavirus/COVID-19? No / Unsure 01/19/2022 10:57 AM CDT documented as of this encounter Plan of Treatment Upcoming Encounters Date Type Department Care Team (Late st Contact Info) Description 08/04/2025 1:00 PM PATIENT ACCOUNT SPECIALIST Office Visit [facility] Medical Group Multispecialty Care - [address] [address] [address] [place] [address] Joshua Pan MD [address] [place] [address] documented as of this encounter Visit Diagnoses Not on filedocumented in this encounter Additional Health Concerns Infection Onset Date Last Indicated Resolved Time COVID-19 Rule Out 05/31/2022 05/31/2022 05/31/2022 2:45 PM CDT COVID-19 Rule Out 05/31/2022 05/31/2022 06/01/2022 4:23 PM CDT COVID-19 Confirmed 05/31/2022 05/31/2022 12:32 AM PATIENT ACCOUNT SPECIALIST COVID-19 Rule Out 04/25/2023 03/30/2023 04/25/2023 9:46 AM CDT COVID-19 Rule Out 08/07/2023 08/07/2023 08/07/2023 2:30 PM PATIENT ACCOUNT SPECIALIST Influenza - Seasonal 08/07/2023 08/07/2023 024 12:35 AM PATIENT ACCOUNT SPECIALIST COVID-19 Rule Out 12/10/2023 12/10/2023 12/10/2023 3:31 PM CDT Assessment Noted Time PHQ-9 Depression Total Score: 2 06/29/20 10:49 AM PATIENT ACCOUNT SPECIALIST documented as of this encounter Care Teams Director Post Relationship Specialty Start Date End Date Joshua Pan MD [address] [place] [address] PCP - General INTERNAL MEDICINE 01/11/21 Sahil Radford MD [address] [place] [address] GASTROENTEROLOGY 06/29/21 documented as of this encounter
--- OUTSIDE RECORDS SUMMARY | 2025-06-22 18:30 | XMS_ITS | Encounter Summary ---
Author Organization [facility] Address [facility]ly [facility] [place] [address] Care Team Providers Care Motor Carrier Inspector Name Role Phone Joshua Pan MD Primary Care Provider [phone] Sahil Radford MD Unavailable Unavailabl e Encounter Details Date Type Department Care Team (Late st Contact Info) Description 11/25/2021 Prep for Procedure [facility] One Day Services [id number] [place] [address] [place] [address] [facility] [address] [place] [address] Social History Tobacco Use Types Packs/Day Years Used Date Smoking Tobacco: Former Cigarettes 30 1 974 - 2004 Smokeless Tobacco: [...] suspected to have Coronavirus/COVID-19? No / Unsure 11/28/2021 9:32 AM CDT documented as of this encounter Plan of Treatment Upcoming Encounters Date Type Department Care Team (Late st Contact Info) Description 08/04/2025 1:00 PM RURAL MAIL CARRIER Office Visit [facility] Medical Group Multispecialty Care - [place] [address] [facility] [address] [place] [address] Joshua Pan MD [address] [facility] [address] [place] [address] documented as of this encounter Results * ECG 12-Lead (11/28/2021 9:49 AM CDT) 11/28/2021 9:49 AM CDT Narrative [facility] RAD - 11/29/2021 9:06 AM CDT [facility] Test Date: 2021-11-28 Pat Name: MARIELLE SANDOVAL Department: 85 Room: Gender: Female Sheep Rancher: : 1950 Requested By: MILO OSORIO Order Number: [id number] Reading MD: Dioni Medellin Measurements Intervals [place] Rate: 86 P: 92 AK: 143 QRS: 96 QRSD: 73 T: 79 QT: 325 QTc: 389 Interpretive Statements SINUS RHYTHM POSSIBLE RIGHT ATRIAL ENLARGEMENT [0.25mV P WAVE] BORDERLINE RIGHT AXIS DEVIATION [QRS AXIS > 90] No previous ECG available for comparison Procedure Note Dioni Medellin MD - 11/29/[facility]: 2021-11-28 Pat Name: MARIELLE SANDOVAL Department: 85 Room: Gender: Female Sheep Rancher: : 1950 Requested By: MILO OSORIO Order Number: [id number] Reading : Dioni Medellin Measurements Intervals [place] Rate: 86 P: 92 AK: 143 QRS: 96 QRSD: 73 T: 79 QT: 325 QTc: 389 Interpretive Statements SINUS RHYTHM POSSIBLE RIGHT ATRIAL ENLARGEMENT [0.25mV P WAVE] BORDERLINE RIGHT AXIS DEVIATION [QRS AXIS > 90] No previous ECG available for comparison us Milo Osorio MD ECG ORDERABLES Final Result Performing Organization Address City/State/[facility] Co de Phone Number [facility] documented in this encounter Visit Diagnoses Diagnosis Preop testing- Primary Preoperative examination, unspecified Preop testing Preoperative examination, unspecified documented in this encounter Additional Health Concerns Infection Onset Date Last Indicated Resolved Time COVID-19 Rule Out 12/06/2021 12/06/2021 12/06/2021 12:58 PM CDT COVID-19 Rule Out 12/06/2021 12/06/2021 12/07/2021 1:37 PM CDT COVID-19 Rule Out 05/31/2022 05/31/2022 05/31/2022 2:45 PM CDT COVID-19 Rule Out 05/31/2022 05/31/2022 06/01/2022 4:23 PM CDT COVID-19 Confirmed 05/31/2022 05/31/2022 12:32 AM RURAL MAIL CARRIER COVID-19 Rule Out 04/25/2023 03/30/2023 04/25/2023 9:46 AM CDT COVID-19 Rule Out 08/07/2023 08/07/2023 08/07/2023 2:30 PM RURAL MAIL CARRIER Influenza - Seasonal 08/07/2023 08/07/2023 024 12:35 AM RURAL MAIL CARRIER COVID-19 Rule Out 12/10/2023 12/10/2023 12/10/2023 3:31 PM CDT Assessment Noted Time PHQ-9 Depression Total Score: 2 06/29/20 21 10:49 AM RURAL MAIL CARRIER documented as of this encounter Care Teams Motor Carrier Inspector Relationship Specialty Start Date End Date Joshua Pan MD [address] [address] PCP - General INTERNAL MEDICINE 01/11/21 Sahil Radford MD [address] [address] [place] [address] GASTROENTEROLOGY 06/29/21 documented as of this encounter
--- OUTSIDE RECORDS SUMMARY | 2025-06-22 18:30 | XMS_ITS | Encounter Summary ---
Author Organization [facility] Address [facility] [place] [address] Care Team Providers Care Facilities Planner Name Role Phone Joshua Pan MD Primary Care Provider [phone] Sahil Radford MD Unavailable Unavailabl e Encounter Details Date Type Department Care Team (Late st Contact Info) Description 11/24/2021 Prep for Procedure [facility] One Day Services [id number] [place] [address] [place] [address] [facility] [address] [place] [address] Social History Tobacco Use Types [...] suspected to have Coronavirus/COVID-19? No / Unsure 11/03/2021 7:59 AM CDT documented as of this encounter Plan of Treatment Upcoming Encounters Date Type Department Care Team (Late st Contact Info) Description 08/04/2025 1:00 PM BREAKFAST BAR ATTENDANT Office Visit [facility] Medical Group Multispecialty Care - [place] [id number] [facility] [address] [place] [address] Joshua Pan MD [address] [facility] [address] [place] [address] documented as of this encounter Results * MRSA SCREENING (11/28/2021 9:41 AM CDT) SPEC DESCRIPTION NASAL 11/28/2021 9:37 AM CDT [facility] SPECIAL REQUESTS NO SPECIAL REQUEST 11/28/2021 9:37 AM CDT [facility] CULTURE RESULT NO METHICILLIN RESISTANT STAPH AUREUS ISOLATED 11/29/2021 3:03 PM CDT [facility] SPECIMEN FROM INTERNAL NOSE / Unknown 11/28/2021 9:41 AM CDT 11/28/2021 9:42 AM CDT Milo Espinosa MD MICROBIOLOGY - GENERAL ORDERABLE S Final Result Performing Organization Address City/State/[facility] de Phone Number [facility] [address] [place] [address], documented in this encounter Visit Diagnoses Diagnosis Preop testing- Primary Preoperative examination, unspecified documented in this encounter Additional Health Concerns Infection Onset Date Last Indicated Resolved Time COVID-19 Rule Out 12/06/2021 12/06/2021 12/06/2021 12:58 PM CDT COVID-19 Rule Out 12/06/2021 12/06/2021 12/07/2021 1:37 PM CDT COVID-19 Rule Out 05/31/2022 05/31/2022 05/31/2022 2:45 PM CDT COVID-19 Rule Out 05/31/2022 05/31/202206/0106/01/2022 4:23 PM CDT COVID-19 Confirmed 05/31/2022 05/31/2022 12:32 AM BREAKFAST BAR ATTENDANT COVID-19 Rule Out 04/25/2023 03/30/2023 04/25/2023 9:46 AM CDT COVID-19 Rule Out 08/07/2023 08/07/2023 08/07/2023 2:30 PM BREAKFAST BAR ATTENDANT Influenza - Seasonal 08/07/2023 08/07/2023 024 12:35 AM BREAKFAST BAR ATTENDANT COVID-19 Rule Out 12/10/2023 12/10/2023 12/10/2023 3:31 PM CDT Assessment Noted Time PHQ-9 Depression Total Score: 2 06/29/20 21 10:49 AM BREAKFAST BAR ATTENDANT documented as of this encounter Care Teams Facilities Planner Relationship Specialty Start Date End Date Joshua Pan MD [address] [address] PCP - General INTERNAL MEDICINE 01/11/21 Sahil Radford MD [address] [address] GASTROENTEROLOGY 06/29/21 documented as of this encounter
--- OUTSIDE RECORDS SUMMARY | 2025-06-22 18:30 | XMS_ITS | Clinical Summary ---
Author Organization [facility] Address [address] [place] [address] Care Team Providers Care Air Export Coordinator Name Role Phone Joshua Pan MD Primary Care Provider [phone] Allergies Active Allergy Reactions Criticality Noted Date [...] on file Legal Sex Female 1:36 PM REMITTANCE CLERK Gender Identity Not on file Sexual Orientation Not on file Last Filed Vital Signs Vital Sign Reading Time Taken Comments Blood Pressure 114/78 07/28/2022 11:14 AM REMITTANCE CLERK Pulse 94 07/28/2022 11:14 AM REMITTANCE CLERK Temperature 36.1 C (96.9 F) 07/28/2022 11:14 AM REMITTANCE CLERK Respiratory Rate 18 07/28/2022 11:14 AM REMITTANCE CLERK Oxygen Saturation 98% 07/28/2022 11:14 AM REMITTANCE CLERK Inhaled Oxygen Concentration - - Weight 42.8 kg (94 lb 4.8 oz) 07/28/2022 11:14 A M REMITTANCE CLERK Height 157.5 cm (5' 2) 07/28/2022 11:14 AM REMITTANCE CLERK Body Mass Index 17.25 07/28/2022 11:14 AM REMITTANCE CLERK Plan of Treatment Health Maintenance Due Date [...] age to complete this topic Insurance MEDICARE [facility] INS & FIN roofer apprentice Care Teams Air Export Coordinator Relationship Specialty Start Date End Date Joshua Pan MD [address] [facility] [address] [place] [address] PCP - General Internal Medicine 06/23/22
--- OUTSIDE RECORDS SUMMARY | 2025-06-22 18:30 | XMS_ITS | Encounter Summary ---
Author Organization [facility] Address [facility] [place] [address] Care Team Providers Care Safety Fire Boss Name Role Phone Joshua Pan MD Primary Care Provider [phone] Sahil Radford MD Unavailable Unavailabl e Encounter Details Date Type Department Care Team (Late st Contact Info) Description 01/09/2022 Prep for Procedure [facility] [id number] [place] [address] [place] [address] [facility] [address] [place] [address] Social History Tobacco Use Types [...] suspected to have Coronavirus/COVID-19? No / Unsure 01/12/2022 9:21 AM CDT documented as of this encounter Plan of Treatment Upcoming Encounters Date Type Department Care Team (Late st Contact Info) Description 08/04/2025 1:00 PM PRODUCTION REPRODUCTION MANAGER Office Visit [facility] Multispecialty Care - [facility] [address] [facility] [address] [place] [address] Joshua Pan MD [address] [facility] [address] [place] [address] documented as of this encounter Results * MRSA SCREENING (01/12/2022 1:29 PM CDT) SPEC DESCRIPTION NASAL 01/12/2022 12:39 PM CDT [facility] SPECIAL REQUESTS NO SPECIAL REQUEST 01/12/2022 12:39 PM CDT [facility] CULTURE RESULT NO MRSA ISOLATED 01/13/2022 2:15 PM CDT [facility] SPECIMEN FROM INTERNAL NOSE / Unknown 01/12/2022 1:29 PM CDT 01/12/2022 1:30 PM CDT Milo Espinosa MD MICROBIOLOGY - GENERAL ORDERABLE S Final Result Performing Organization Address City/State/[facility] Co de Phone Number [facility] [address] [place] [address], documented in this encounter Visit Diagnoses Diagnosis Preop testing- Primary Preoperative examination, unspecified documented in this encounter Additional Health Concerns Infection Onset Date Last Indicated Resolved Time COVID-19 Rule Out 05/31/2022 05/31/2022 05/31/2022 2:45 PM CDT COVID-19 Rule Out 05/31/2022 05/31/2022 06/01/2022 4:23 PM CDT COVID-19 Confirmed 05/31/2022 05/31/2022 12:32 AM PRODUCTION REPRODUCTION MANAGER COVID-19 Rule Out 04/25/2023 03/30/2023 04/25/2023 9:46 AM CDT COVID-19 Rule Out 08/07/2023 08/07/2023 08/07/2023 2:30 PM PRODUCTION REPRODUCTION MANAGER Influenza - Seasonal 08/07/2023 08/07/2023 024 12:35 AM PRODUCTION REPRODUCTION MANAGER COVID-19 Rule Out 12/10/2023 12/10/2023 12/10/2023 3:31 PM CDT Assessment Noted Time PHQ-9 Depression Total Score: 2 06/29/20 10:49 AM PRODUCTION REPRODUCTION MANAGER documented as of this encounter Care Teams Safety Fire Boss Relationship Specialty Start Date End Date Joshua Pan MD [address] [facility] [address] [place] [address] PCP - General INTERNAL MEDICINE 01/11/21 Sahil Radford MD [address] [facility] [address] [place] [address] GASTROENTEROLOGY 06/29/21 documented as of this encounter
--- OUTSIDE RECORDS SUMMARY | 2025-06-22 18:30 | XMS_ITS | Encounter Summary ---
Author Organization [facility] Address [facility] [place] [address] Care Team Providers Care Customer Response Representative Name Role Phone Joshua Pan MD Primary Care Provider [phone] Sahil Radford MD Unavailable Unavailabl e Encounter Details Date Type Department Care Team (Late st Contact Info) Description 12/19/2021 Prep for Procedure [facility] Medical Group General Surgery [facility] [address] [facility], [address] [place] [address] [place] [address] [facility] [address] [place] [address] Social History Tobacco Use Types [...] suspected to have Coronavirus/COVID-19? No / Unsure 12/06/2021 11:49 AM CDT documented as of this encounter Plan of Treatment Upcoming Encounters Date Type Department Care Team (Late st Contact Info) Description 08/04/2025 1:00 PM COTTON BALL BAGGER Office Visit [facility] Medical Group Multispecialty Care - [place] [address] [address] [place] [address] [place] [address] [place] [address] documented as of this encounter Visit Diagnoses Not on filedocumented in this encounter Additional Health Concerns Infection Onset Date Last Indicated Resolved Time COVID-19 Rule Out 05/31/2022 05/31/2022 05/31/2022 2:45 PM CDT COVID-19 Rule Out 05/31/2022 05/31/2022 06/01/2022 4:23 PM CDT COVID-19 Confirmed 05/31/2022 05/31/2022 12:32 AM COTTON BALL BAGGER COVID-19 Rule Out 04/25/2023 03/30/2023 04/25/2023 9:46 AM CDT COVID-19 Rule Out 08/07/2023 08/07/2023 08/07/2023 2:30 PM COTTON BALL BAGGER Influenza - Seasonal 08/07/2023 08/07/2023 024 12:35 AM COTTON BALL BAGGER COVID-19 Rule Out 12/10/2023 12/10/2023 12/10/2023 3:31 PM CDT Assessment Noted Time PHQ-9 Depression Total Score: 2 06/29/20 21 10:49 AM COTTON BALL BAGGER documented as of this encounter Care Teams Customer Response Representative Relationship Specialty Start Date End Date Joshua Pan MD [address] [place] [address] PCP - General INTERNAL MEDICINE 01/11/21 Sahil Radford MD [address] [place] [address] GASTROENTEROLOGY 06/29/21 documented as of this encounter
--- OUTSIDE RECORDS SUMMARY | 2025-06-22 18:30 | XMS_ITS | Encounter Summary ---
Author Organization [facility] Address [address] [place] [address] Care Team Providers Care Comb Machine Operator Name Role Phone Joshua Pan MD Primary Care Provider [phone] Sahil Radford MD Unavailable Unavailabl e Encounter Details Date Type Department Care Team (Late st Contact Info) Description 01/24/2023 MyChart Message Enc [facility] Medical Group - [facility] [address] [place], [place] [address] [facility], [facility] Provider Air Quality Message Social History Tobacco Use Types Packs/Day Years Used Date Smoking Tobacco: Former Cigarettes 1 30 0 07/30/1973 - 07/30/2003 Smokeless Tobacco: Never Comments:counseled by Dr Renée meléndez. Alcohol Use Standard Drinks/Week Comments Yes 0 (1 standard drink = 0.6 oz pur e alcohol) 1-2 per day PHQ-2 Answer Date Recorded Patient Health Questionnaire-2 Score 0 11/10/2022 Comments No Sex and Gender Information Value [...] PM JUDET Leandra Hawley RN Active * Because of [...] st Contact Info) Description 08/04/2025 1:00 PM BUDDHIST MONK Office Visit [facility] Medical Group Multispecialty [facility] [place] [address] [address] [place] [address] Joshua Pan MD [address] [place] [address] documented as of this encounter Goals Goal Patient Goal Type Associated Problems Recent Progress Patient-Stated? Author Health - patient able to perform ADLs independently General No Annabel Staton RN documented as of this encounter Visit Diagnoses Not on filedocumented in this encounter Additional Health Concerns Infection Onset Date Last Indicated Resolved Time COVID-19 Rule Out 04/25/2023 03/30/2023 04/25/2023 9:46 AM CDT COVID-19 Rule Out 08/07/2023 08/07/2023 08/07/2023 2:30 PM BUDDHIST MONK Influenza - Seasonal 08/07/2023 08/07/2023 024 12:35 AM BUDDHIST MONK COVID-19 Rule Out 12/10/2023 12/10/2023 12/10/2023 3:31 PM CDT Assessment Noted Time PHQ-9 Depression Total Score: 2 06/29/20 10:49 AM BUDDHIST MONK documented as of this encounter Care Teams Comb Machine Operator Relationship Specialty Start Date End Date Joshua Pan MD [address] [facility] [address] [place] [address] PCP - General INTERNAL MEDICINE 01/11/21 Sahil Radford MD [address] [facility] [address] [place] [address] GASTROENTEROLOGY 06/29/21 documented as of this encounter
--- OUTSIDE RECORDS SUMMARY | 2025-06-22 18:30 | XMS_ITS | Encounter Summary ---
Author Organization [facility] Address [facility] [place] [address] Care Team Providers Care Dyed Yarn Operator Name Role Phone Joshua Pan MD Primary Care Provider [phone] Sahil Radford MD Unavailable Unavailabl e Encounter Details Date Type Department Care Team (Late st Contact Info) Description 01/18/2022 [employer] Message Enc [facility] Medical Group Multispecialty Care - [address] [place] [address] [employer], [facility] Provider medication Social History Tobacco Use Types Packs/Day [...] suspected to have Coronavirus/COVID-19? No / Unsure 01/20/2022 8:58 AM CDT documented as of this encounter Functional Status * Calculated C-SSRS Risk Score (Lifetime/Recent) Answer Date of Assessment Author Status No Risk Indicated 01/20/2022 8:59 AM JUDET Melquiades Edwards RN Active * Daniels Suicide Severity Rating Scale (Screener/Recent Self-Report) Question Answer Date of Assessment Author Status 1. Wish to be (Past 1 Month) No 01/20/2022 8:59 AM Alesia Tapia RN Active 2. Non-Specific Active Suicidal Thoughts (Past 1 Month) No 01/20/2022 8:59 AM Alesia Tapia RN Active 6. Suicidal Behavior (Lifetime) No 01/20/2022 8:59 AM Alesia Tapia RN Active documented as of this encounter Mental Status * Question Answer Entry Date Author Status Because of a physical, menta l, or emotional condition, do you have serious difficulty concentrating, remembering, or making decisions? No 01/20/2022 1:44 PM JUDET Leandra Hawley RN Activ e documented in this encounter Plan of Treatment Upcoming Encounters Date Type Department Care Team (Late st Contact Info) Description 08/04/2025 1:00 PM WEB PRODUCTION ARTIST Office Visit [facility] Medical Group Multispecialty Care - [place] [address] [address] [place] [address] Joshua Pan MD [address] [place] [address] documented as of this encounter Goals Goal [...] CDT COVID-19 Confirmed 05/31/2022 05/31/2022 12:32 AM WEB PRODUCTION ARTIST COVID-19 Rule Out 04/25/2023 03/30/2023 04/25/2023 9:46 AM CDT COVID-19 Rule Out 08/07/2023 08/07/2023 08/07/2023 2:30 PM WEB PRODUCTION ARTIST Influenza - Seasonal 08/07/2023 08/07/2023 024 12:35 AM WEB PRODUCTION ARTIST COVID-19 Rule Out 12/10/2023 12/10/2023 12/10/2023 3:31 PM CDT Assessment Noted Time PHQ-9 Depression Total Score: 2 06/29/20 21 10:49 AM WEB PRODUCTION ARTIST documented as of this encounter Care Teams Dyed Yarn Operator Relationship Specialty Start Date End Date Joshua Pan MD [address] [facility] [address] [place] [address] PCP - General INTERNAL MEDICINE 01/11/21 Sahil Radford MD [address] [facility] [address] [place] [address] GASTROENTEROLOGY 06/29/21 documented as of this encounter
--- OUTSIDE RECORDS SUMMARY | 2025-06-22 18:31 | XMS_ITS | Clinical Summary ---
Author Organization [place] [id number] [facility] Address [address] [place] [address] Care Team Providers Care Armature Winder Repairer Name Role Phone Nam Elizondo MD Unavailable [phone] Unknown, Notinfile Primary Care Provider Unavail able Usha Kim NP Unavailable Allergies Active Allergy Reactions Criticality Noted Date [...] total) by mouth daily Active peg 3350-sod sulf,plaq-zbc-due (Suflave) 178.7-7.3-0.5 gram recon soln every 12 [...] (02/28/2022): Added automatically from request for surgery [id number] Moderate episode of recurrent major depressive d [...] Segmental Resection - (Added by TW Conv) [place] TONSILLECTOMY PRIMARY/SEC ONDARY AGE 12/> Tonsillectomy Over Age 12 - (Added by TW Conv) [place] TOTAL ABDOMINAL HYSTERECT W/WO RMVL TUBE OVARY Hysterectomy - (Added by TW Conv) [place] TOTAL ABDOMINAL HYSTERECT W/WO RMVL TUBE OVARY Hysterectomy - (Added by TW Conv) [place] TONSILLECTOMY PRIMARY/SEC ONDARY <AGE 12 Tonsillectomy - [...] on file Legal Sex Female 6:36 AM STERILE PROCESSING TECHNICIAN Gender Identity Not on file Sexual Orientation Not on file Occupation Industry Job Start Date Job End Date Retired Not on file Not on file Not on file Last Filed Vital Signs Vital Sign Reading Time Taken Comments Blood Pressure 139/87 08/02/2021 11:00 PM STERILE PROCESSING TECHNICIAN Pulse 95 08/02/2021 11:00 PM STERILE PROCESSING TECHNICIAN Temperature 36.7 C (98.1 F) 08/02/2021 1:41 PM STERILE PROCESSING TECHNICIAN Respiratory Rate 20 08/02/2021 11:00 PM STERILE PROCESSING TECHNICIAN Oxygen Saturation 97% 08/02/2021 11:00 PM STERILE PROCESSING TECHNICIAN Inhaled Oxygen Concentration - - Weight 41.2 [...] 65+ Completed 022, 07/02/2017, 07/03/2016 Insurance MEDICARE [email or web address] MEDICARE [email or web address] MEDICARE [email or web address] Care Teams Armature Winder Repairer Relationship Specialty Start Date End Date Unknown, Notinfile PCP - General 08/10/21 Nam Elizondo MD [address] [facility] [address] [place] [address] Radiation Oncologist Radiation Oncology 05/24/18 Usha Kim NP [address] [facility] [address] [place] [address] Nurse Practitioner Radiation Oncology 02/27/23
--- OUTSIDE RECORDS SUMMARY | 2025-06-22 18:31 | XMS_ITS | Encounter Summary ---
Author Organization [facility] Address [facility] [place] [address] Care Team Providers Care Open Cut Examiner Name Role Phone Joshua Pan MD Primary Care Provider [phone] Sahil Radford MD Unavailable Unavailabl e Encounter Details Date Type Department Care Team (Latest Contact Info) Description 06/29/2021 [employer] Message Enc [facility] Medical Group Multispecialty Care - [address] [place] [address] [facility] Provider Follow up from today's Wellness Visit Social History Tobacco Use Types Packs/Day Years Used Date Smoking Tobacco: Former Cigarettes 1 30 1 974 - 2004 Smokeless Tobacco: Never Comments:counseled by Dr Renée meléndez. Alcohol Use Standard Drinks/Week Comments Yes 1.7 (1 standard drink = 0.6 oz p ure alcohol) PHQ-2 Answer Date Recorded PHQ-2 Score - [...] Exposure Response Date Recorded In the last month, have you been in contact with someone who was confirmed or suspected to have Coronavirus / COVID-19? No / Unsure 06/29/2021 10:26 AM CLINICAL TRIAL ASSOCIATE documented as of this encounter Plan of Treatment Upcoming Encounters Date Type Department Care Team (Late st Contact Info) Description 08/04/2025 1:00 PM CLINICAL TRIAL ASSOCIATE Office Visit [facility] Medical Group Multispecialty Care - [place] [address] [address] [place] [address] Joshua Pan MD [facility] [address] [address] documented as of this encounter Visit Diagnoses Not on filedocumented in this encounter Additional Health Concerns Infection Onset Date Last Indicated Resolved Time COVID-19 Rule Out 07/27/2021 07/27/2021 07/27/2021 11:23 AM CLINICAL TRIAL ASSOCIATE COVID-19 Rule Out 07/27/2021 07/27/2021 07/28/2021 1:06 AM CLINICAL TRIAL ASSOCIATE COVID-19 Rule Out 12/06/2021 12/06/2021 12/06/2021 12:58 PM CDT COVID-19 Rule Out 12/06/2021 12/06/2021 12/07/2021 1:37 PM CDT COVID-19 Rule Out 05/31/2022 05/31/2022 05/31/2022 2:45 PM CDT COVID-19 Rule Out 05/31/2022 05/31/2022 06/01/2022 4:23 PM CDT COVID-19 Confirmed 05/31/2022 05/31/2022 12:32 AM CLINICAL TRIAL ASSOCIATE COVID-19 Rule Out 04/25/2023 03/30/2023 04/25/2023 9:46 AM CDT COVID-19 Rule Out 08/07/2023 08/07/2023 08/07/2023 2:30 PM CLINICAL TRIAL ASSOCIATE Influenza - Seasonal 08/07/2023 08/07/2023 024 12:35 AM CLINICAL TRIAL ASSOCIATE COVID-19 Rule Out 12/10/2023 12/10/2023 12/10/2023 3:31 PM CDT Assessment Noted Time PHQ-9 Depression Total Score: 2 06/29/20 21 10:49 AM CLINICAL TRIAL ASSOCIATE documented as of this encounter Care Teams Open Cut Examiner Relationship Specialty Start Date End Date Joshua Pan MD [address] [address] PCP - General INTERNAL MEDICINE 01/11/21 Sahil Radford MD [address] [address] GASTROENTEROLOGY 06/29/21 documented as of this encounter
== END 2025-06-22 18:45 | disposition home or self-care (01) ==
PROVIDERS: Physician Assistant; Emergency Provider Emergency Medicine; PCP Internal Medicine
DX: R42 Dizziness and giddiness (principal); K21.9 Gastro-esophageal reflux disease without esophagitis; I10 Essential (primary) hypertension; E78.5 Hyperlipidemia, unspecified; J44.9 Chronic obstructive pulmonary disease, unspecified; F32.A Depression, unspecified; F41.9 Anxiety disorder, unspecified; Z85.118 Personal history of other malignant neoplasm of bronchus and lung
CPT/HCPCS: 36415; 70450; 71046; 80053; 81003; 85025; 93005; 99284; A9270; J7040